=== PATIENT | male | born 1935 | race Caucasian/White ===

== ENCOUNTER 2017-10-26 01:34 | Inpatient (IN) | payer MEDICARE, OTHER ==
[~2017-10-26] VITALS: Ht 182.9 cm; Wt 68.0 kg
[2017-10-26] VITALS (14 sets, daily range): BP systolic 86–181; BP diastolic 51–102; PULSE 65–89; RESP 16–28; TEMP 97.6–99; O2SAT 92–99
--- NOTE | 2017-10-26 01:56 | RADRPT ---
EXAM DATE/TIME: 10/26/2017 01:44 [place] COMPARISON: No previous studies available for comparison. INDICATIONS : Short of breath. MEDICAL HISTORY : None. SURGICAL HISTORY : None. ENCOUNTER: Initial ACUITY: 1 day PAIN SCORE: 0/10 LOCATION: Bilateral chest FINDINGS: The heart size is normal. There is mild increased density at the medial right base. The left lung is grossly clear. No effusion is seen. CONCLUSION: Mild increased density at the right medial base which may represent a mild area of atelectasis or con solidation. Davie Kurtz MD on October 26, 2017 at 1:50 Board Certified Radiologist. This report was verified electronically.
[2017-10-26] MEDS: RESP: ALBUTEROL 2.5 MG/IPRATROPIUM 0.5 MG NEB (SCH) INH (02:09)
[2017-10-26] MEDS ORDERED: AZITHROMYCIN INJ 500 MG in SODIUM CHLOR 0.9% 250 ML INJ 250 ML IV ONE (02:15)
[2017-10-26] MEDS ORDERED: SODIUM CHLORIDE 0.9% FLUSH 10 ML FLUSH IVF PRN (02:15)
[2017-10-26] MEDS ORDERED: CEFEPIME INJ 2,000 MG in SODIUM CHLORIDE 0.9% INJ 100 ML IV ONE (02:15)
[2017-10-26] MEDS ORDERED: methylPREDNISolone SOD SUCC 125 MG/2 ML VIAL IV PUSH ONE (02:15)
--- NOTE | 2017-10-26 03:17 | PD ---
HPI Chief Complaint: Respiratory Distress Time Seen by Provider: 01:37 Travel History International Travel<30 days: No Contact w/Intl Traveler<30days: No Traveled to known affect area: No History of Present Illness HPI The patient is an 82 year old male who presents to the [facility] emergency department with a history of shortness of breath that became worse this evening. The patient was on supplemental oxygen at 2 L, however he began to desaturate into the 80s. The patient is currently under treatment with doxycycline for bilateral pneumonia according to ambulance services confirmed via chest x-ray. Unfortunately no history is able to be obtained from the patient as he is nonverbal. According to the record the patient is nonverbal at his baseline. The patient does track with IV movements around the room and is cooperative with his exam. The patient reportedly has been having fevers with a MAXIMUM TEMPERATURE of 102 at the assisted. Unfortunately no other history is able to be obtained from the patient due to his baseline mental status. The patient's electronic medical record will be reviewed as well as his assisted record for further history. The patient's blood pressure prior to arrival was in the 80s systolic. The patient was given normal saline 1 L IV fluid bolus prior to arrival. The patient's blood pressure has improved to systolic in the low 100s. FORMERLY [facility], [facility] Past Medical History Narrative Medical The patient's past medical history is significant for dementia. The patient is nonverbal. The patient has a history of hypertension, coronary artery disease, cardiac arrhythmia, left heel pressure ulcer, history of anxiety disorder, and a history of tremor. Anemia: Yes Anxiety: Yes Cardiovascular Problems: Yes (ISCHEMIC HEART DISEASE, ATRIOVENTRICULAR BLOCK) Dementia: Yes GERD: Yes Genitourinary: Yes (URINARY TRACT INFECTION) Hypertension: Yes Neurologic: Yes (TREMOR) Integumentary: Yes (LEFT HEEL PRESSURE ULCER) Thyroid Disease: Yes (HYPO) Past Surgical History Narrative Surgical The patient's past surgical history is unable to be obtained. Social History Alcohol Use: No Tobacco Use: No Substance Use: No Allergies-Medications (Allergen,Severity, Reaction): Coded Allergies: No Known Allergies (Unverified , 10/26/17) Reported Meds & Prescriptions Reported Meds & Active Scripts Active Reported Duoneb (Ipratropium-Albuterol Neb) 0.5-2.5 Mg/3 Ml Neb 1 Nebule INH Q8HR NEB Aripiprazole 5 Mg Tab 5 Mg PO DAILY Amlodipine (Amlodipine Besylate) 5 Mg Tab 5 Mg PO BID Atorvastatin (Atorvastatin Calcium) 10 Mg Tab 5 Mg PO HS Donepezil 10 Mg Tab 10 Mg PO HS Losartan (Losartan Potassium) 50 Mg Tab 50 Mg PO DAILY B-12 (Cyanocobalamin) 500 Mcg Subl 500 Mcg SL DAILY Oxybutynin ER 24 HR (Oxybutynin Chloride) 5 Mg Tab 5 Mg PO DAILY Docusate Sodium 100 Mg Cap 100 Mg PO DAILY Multi-Vitamin Daily (Multiple Vitamin) 1 Tab Tab 1 Tab PO DAILY Tums (Calcium Carbonate (Antacid)) 500 Mg Chew 500 Mg CHEW PRN Carvedilol 3.125 Mg Tab 3.125 Mg PO BID Ferrous Sulfate 325 Mg (65 Mg Iron) Tablet 325 Mg PO BIDPC Florastor (Saccharomyces Boulardii) 250 Mg Cap 250 Mg PO BID Orabase Dental (Benzocaine Dental) 20% Pste 1 Applic DENTAL QID Robafen Dm 100-10 mg/5Ml (Dextromethorphan-Guaifenesin) 100 Mg-10 Mg/5 Ml Syp Requip (Ropinirole) 1 Mg Tab 1 Mg PO TID Hydralazine HCl 25 Mg Tablet 25 Mg PO TID Levothyroxine (Levothyroxine Sodium) 175 Mcg Tab 175 Mcg PO DAILY Levemir Inj (Insulin Detemir) 1,000 unit/ 10 ML Vial 4 Units SQ HS Do not mix with any other Insulin. Levemir Inj (Insulin Detemir) 1,000 unit/ 10 ML Vial 25 Units SQ AC BREAKFAST Do not mix with any other Insulin. Metformin (Metformin HCl) 500 Mg Tab 500 Mg PO BIDPC Novolog Inj (Insulin Aspart) 1,000 Unit/10 Ml Vial 1-9 Units SQ ACHS Max dose at bedtime:( )units; sugars less than 70,(0)units; sugars 150-199,(1) unit; sugars 200-249,(3) units; sugars 250-299,(5) units; sugars 300-349,(7) units; sugars greater than 349,(9) units Aspirin 81 Mg Chew 81 Mg CHEW DAILY Buspirone (Buspirone HCl) 5 Mg Tab 5 Mg PO BID Vibramycin (Doxycycline Hyclate) 100 Mg Cap 100 Mg PO BID Milk of Magnesia Liq (Magnesium Hydroxide) 400 Mg/5 Ml Susp 30 Ml PO DAILY PRN Non-Aspirin (Acetaminophen) 325 Mg Tab 325 Mg PO Q4-6H PRN Review of Systems ROS Limitations: Poor Historian, Other: (nonverbal) General / Constitutional: Positive: Fever HENT: Positive: Congestion Cardiovascular: Positive: Dyspnea on exertion Respiratory: Positive: Cough, Shortness of Breath Physical Exam Narrative General: The patient is a well-developed well-nourished male in no acute distress. Head and Neck exam: Head is normocephalic atraumatic. Eyes: EOMI, pupils are equal round and reactive to light. Nose: Midline septum with pink mucous membranes Mouth: Dentition unremarkable. Moist mucus membranes. Posterior oropharynx is not erythematous. No tonsillar hypertrophy. Uvula midline. Airway patent. Neck: No palpable lymphadenopathy. No nuchal rigidity. No thyromegaly. Cardiovascular: Normal sinus rhythm in the 80s to 90s without murmurs, gallops, or rubs. No pulse deficit to the extremities on simultaneous auscultation and palpation of his radial artery. Lungs: Scattered rhonchi throughout bilateral lung verdin, decreased breath sounds in the right lower lung base. Anterior soft expiratory wheezes are noted. No crackles are audible. No accessory muscle use. Abdomen: Soft, without tenderness to palpation in all 4 quadrants of the abdomen. No guarding, rebound, or rigidity. Normal bowel sounds are audible. No tenderness on palpation of McBurney's point. Extremities: No clubbing or cyanosis. The patient has 1+ pitting edema bilateral lower extremities. 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 Back: No costovertebral angle tenderness to palpation. Neurologic Exam: The patient is tremulous on examination although according to the record he is tremulous at baseline. The patient is looking around the room and is cooperative with opening his mouth. He attempts to move bilateral upper extremities when asked and squeeze my hands, however he does have contractures noted of bilateral lower extremities limiting movement. According to the record he is mainly bed bound. Skin Exam: No rash noted. Intact skin that is warm and dry. Data Data Last Documented VS Vital Signs Date Time Temp Pulse Resp B/P (MAP) Pulse Ox O2 Delivery O2 Flow Rate FiO2 10/26/17 05:11 99.0 88 18 99/54 (69) 93 Nasal Cannula 2.00 Orders Orders Electrocardiogram (10/26/17 01:37) Complete Blood Count With Diff (10/26/17 01:37) Comprehensive Metabolic Panel (10/26/17 01:37) Creatine Kinase (Cpk) (10/26/17 01:37) Ckmb (Isoenzyme) Profile (10/26/17 01:37) Troponin I (10/26/17 01:37) B-Type Natriuretic Peptide (10/26/17 01:37) Prothrombin Time / Inr (Pt) (10/26/17 01:37) Act Partial Throm Time (Ptt) (10/26/17 01:37) Blood Culture (10/26/17 01:37) C-Reactive Protein (Crp) (10/26/17 01:37) Lipase (10/26/17 01:37) Urinalysis - C+S If Indicated (10/26/17 01:37) Magnesium (Mg) (10/26/17 01:37) Influenzae A/B Antigen (10/26/17 01:37) Chest, Single Ap (10/26/17 01:37) Iv Access Insert/Monitor (10/26/17 01:37) Ecg Monitoring (10/26/17 01:37) Oximetry (10/26/17 01:37) Lactic Acid Sepsis Protocol (10/26/17 01:37) Cefepime Inj (Maxipime Inj) (10/26/17 02:15) Azithromycin Inj (Zithromax Inj) (10/26/17 02:15) Sodium Chloride 0.9% Flush (Ns Flush) (10/26/17 02:15) Methylprednisolone So Succ Inj (Solumedr (10/26/17 02:15) Albuterol-Ipratropium Neb (Duoneb Neb) (10/26/17 02:15) CKMB (10/26/17 03:10) CKMB% (10/26/17 03:10) Admit Order (Ed Use Only) (10/26/17 05:14) Labs Laboratory Tests Test 10/26/17 03:10 10/26/17 03:47 White Blood Count 19.6 TH/MM3 Red Blood Count 2.89 MIL/MM3 Hemoglobin 8.8 GM/DL Hematocrit 26.1 % Mean Corpuscular Volume 90.2 FL Mean Corpuscular Hemoglobin 30.5 PG Mean Corpuscular Hemoglobin Concent 33.8 % Red Cell Distribution Width 15.3 % Platelet Count 343 TH/MM3 Mean Platelet Volume 8.8 FL Neutrophils (%) (Auto) 87.3 % Lymphocytes (%) (Auto) 7.5 % Monocytes (%) (Auto) 4.7 % Eosinophils (%) (Auto) 0.2 % Basophils (%) (Auto) 0.3 % Neutrophils # (Auto) 17.1 TH/MM3 Lymphocytes # (Auto) 1.5 TH/MM3 Monocytes # (Auto) 0.9 TH/MM3 Eosinophils # (Auto) 0.0 TH/MM3 Basophils # (Auto) 0.1 TH/MM3 CBC Comment DIFF FINAL Differential Comment Prothrombin Time 12.1 SEC Prothromb Time International Ratio 1.2 RATIO Activated Partial Thromboplast Time 31.4 SEC Blood Urea Nitrogen 62 MG/DL Creatinine 2.15 MG/DL Random Glucose 192 MG/DL Total Protein 7.1 GM/DL Albumin 2.0 GM/DL Calcium Level 8.0 MG/DL Magnesium Level 2.1 MG/DL Alkaline Phosphatase 69 U/L Aspartate Amino Transf (AST/SGOT) 78 U/L Alanine Aminotransferase (ALT/SGPT) 40 U/L Total Bilirubin 0.5 MG/DL Sodium Level 154 MEQ/L Potassium Level 4.2 MEQ/L Chloride Level 121 MEQ/L Carbon Dioxide Level 23.5 MEQ/L Anion Gap 10 MEQ/L Estimat Glomerular Filtration Rate 30 ML/MIN Lactic Acid Level 1.8 mmol/L Total Creatine Kinase 2020 U/L Creatine Kinase MB 15.3 NG/ML Creatine Kinase MB % 0.8 % Troponin I 0.10 NG/ML C-Reactive Protein 13.80 MG/DL B-Type Natriuretic Peptide 41 PG/ML Lipase 105 U/L Urine Color YELLOW Urine Turbidity CLEAR Urine pH 5.5 Urine Specific [place] 1.012 Urine Protein 30 mg/dL Urine Glucose (UA) NEG mg/dL Urine Ketones NEG mg/dL Urine Occult Blood NEG Urine Nitrite NEG Urine Bilirubin NEG Urine Urobilinogen LESS THAN 2.0 MG/DL Urine Leukocyte Esterase NEG Urine RBC 1 /hpf Urine WBC LESS THAN 1 /hpf Urine Squamous Epithelial Cells <1 /hpf Urine Amorphous Sediment RARE Urine Bacteria RARE /hpf Urine Mucus FEW /lpf Microscopic Urinalysis Comment CULT NOT INDICATED MDM Medical Decision Making Medical Screen Exam Complete: Yes Emergency Medical Condition: Yes Medical Record Reviewed: Yes Interpretation(s) Last Impressions Chest X-Ray 10/26/17 0137 Signed Impressions: Service Date/Time: Thursday, October 26, 2017 01:44 - CONCLUSION: Mild increased density at the right medial base which may represent a mild area of atelectasis or consolidation. Davie Kurtz MD Differential Diagnosis Healthcare acquired pneumonia, versus aspiration pneumonia, versus ingestive heart failure, versus acute coronary syndrome, versus ARDS Narrative Course During the course of the patients emergency department visit, the patients history, examination, and differential diagnosis were reviewed with the patient. The patient was placed on a cardiac exercise specialist with oximetry and frequent blood pressure monitoring. The patient had IV access obtained and blood work sent for analysis. The patient had an ECG done on arrival that shows a sinus rhythm heart rate of 91, right bundle branch block is noted, QRS duration is 129 ms, QTC 447 ms. A premature ventricular contraction is noted. No acute ST segment elevation is noted. The patient was initially provided a second liter of normal saline IV fluids, the patient was given an initial liter by ambulance services. The patient was started on cefepime 2 g IV, Zithromax 500 IV. The patients laboratory studies were reviewed and remarkable for white count of 19.6, hemoglobin 8.8, platelets 343 with 87.3 neutrophils, CMP as remarkable for a sodium of a sodium of 154, chloride 121, BUN 62, creatinine 2.15, glucose 192, AST 78, CPK 2020 with an MB percent of 0.8 consistent with rhabdomyolysis, troponin I 0.10 which could be demand related, versus elevation related to renal insufficiency, C-reactive protein 13.8 consistent with infection, lipase 105, PT 12.1, PTT 30.1. Urinalysis shows 30 protein, rare bacteria, vancomycin 12.4. Radiology studies were reviewed and remarkable for chest x-ray reveals mild increased density at the right medial base which may represent a mild area of atelectasis or consolidation. The patients results were discussed with the patient, including the plan of care. I explained that further testing and/ or monitoring is indicated based on the patients history, examination, and/ or laboratory findings. Therefore, I recommended admission for additional evaluation. The patient expressed understanding and was agreeable with this plan. The patient was admitted to the hospital in guarded condition and sent to a bed under the care of the [facility] service. Sepsis Criteria SIRS Criteria (2 or more): Heart rate over 90, WBC > 39163, < 4000 or > 10% bands Sepsis Criteria (SIRS+source): Infect source susp/known Criteria Outcome: Meets SIRS criteria, Meets sepsis criteria Physician Communication Physician Communication The patient's case including history, pertinent physical examination findings, and laboratory studies were discussed with Dr. Perez. It was agreed that the patient would be admitted to the [facility] service. Diagnosis Primary Impression: Pneumonia Qualified Codes: J18.1 - Lobar pneumonia, unspecified organism Additional Impressions: Failure of outpatient treatment Rhabdomyolysis Qualified Codes: M62.82 - Rhabdomyolysis Acute renal failure Qualified Codes: N17.9 - Acute kidney failure, unspecified Elevated troponin Admitting Information Admitting Physician Requests: Admit Fozia Gómez MD Oct 26, 2017 03:17
[2017-10-26 03:49] LABS: INTERNATIONAL NORMALIZED RATIO 1.2 RATIO; PROTHROMBIN TIME - PATIENT 12.1 SEC (9.8-11.6)
[2017-10-26 03:51] LABS: ALT (GPT) 40 U/L (12-78); AST (GOT) 78 U/L (15-37); BICARBONATE 23.5 MEQ/L (21.0-32.0); BLOOD UREA NITROGEN 62 MG/DL (7-18); CHLORIDE 121 MEQ/L (98-107); CREATININE 2.15 MG/DL (0.60-1.30); GLOMERULAR FILTRATION RATE 30 ML/MIN (>89); GLUCOSE,RANDOM 192 MG/DL (74-106); LIPASE 105 U/L (73-393); MAGNESIUM 2.1 MG/DL (1.5-2.5); SODIUM (NA) 154 MEQ/L (136-145)
[2017-10-26 04:01] LABS: AUTOMATED NEUTROPHIL # 17.1 TH/MM3 (1.8-7.7); BASOPHIL # 0.1 TH/MM3 (0-0.2); BASOPHIL % 0.3 % (0.0-2.0); EOSINOPHIL % 0.2 % (0.0-4.0); HEMATOCRIT 26.1 % (39.0-51.0); HEMOGLOBIN 8.8 GM/DL (13.0-17.0); LYMPH % 7.5 % (9.0-44.0); LYMPHOCYTE # 1.5 TH/MM3 (1.0-4.8); MEAN CELL VOLUME 90.2 FL (80.0-100.0); MEAN CORPUSCULAR HEMOGLOBIN 30.5 PG (27.0-34.0); MEAN CORPUSCULAR HGB CONC 33.8 % (32.0-36.0); MEAN PLATELET VOLUME 8.8 FL (7.0-11.0); MONO % 4.7 % (0.0-8.0); MONOCYTE # 0.9 TH/MM3 (0-0.9); NEUT % 87.3 % (16.0-70.0); PLATELET COUNT 343 TH/MM3 (150-450); RED BLOOD COUNT 2.89 MIL/MM3 (4.50-5.90); RED CELL DISTRIBUTION WIDTH 15.3 % (11.6-17.2); WHITE BLOOD COUNT 19.6 TH/MM3 (4.0-11.0)
[2017-10-26] MEDS ORDERED: NON-325T2 PO (04:03)
[2017-10-26] MEDS ORDERED: MILKSUS PO (04:03)
[2017-10-26 04:06] LABS: ALKALINE PHOSPHATASE 69 U/L (45-117); TOTAL BILIRUBIN ADULT 0.5 MG/DL (0.2-1.0); TOTAL PROTEIN 7.1 GM/DL (6.4-8.2)
[2017-10-26] MEDS ORDERED: LEVEMIR SQ ×2 (04:16)
[2017-10-26] MEDS ORDERED: VITA500L2 SL (04:16)
[2017-10-26] MEDS ORDERED: DOCU100C15 PO (04:16)
[2017-10-26] MEDS ORDERED: TUMS500C CHEW (04:16)
[2017-10-26] MEDS ORDERED: [UNRECOGNIZED DRUG - CODE] DENTAL (04:16)
[2017-10-26] MEDS ORDERED: NOVOLOGP2 SQ (04:16)
[2017-10-26] MEDS ORDERED: OXYB5TAB PO (04:16)
[2017-10-26] MEDS ORDERED: FERR325T18 PO (04:16)
[2017-10-26] MEDS ORDERED: HYDR-3799 PO (04:16)
[2017-10-26] MEDS ORDERED: LEVO175T2 PO (04:16)
[2017-10-26] MEDS ORDERED: ASPI-516 CHEW (04:16)
[2017-10-26] MEDS ORDERED: METF500T PO (04:16)
[2017-10-26] MEDS ORDERED: ROBA100S (04:16)
[2017-10-26] MEDS ORDERED: FLOR250C PO (04:16)
[2017-10-26] MEDS ORDERED: BUSP5TAB PO (04:16)
[2017-10-26] MEDS ORDERED: MULT-65 PO (04:16)
[2017-10-26] MEDS ORDERED: VIBR100C PO (04:16)
[2017-10-26] MEDS ORDERED: ROPI1TAB72 PO (04:16)
[2017-10-26] MEDS ORDERED: CARV3.12 PO (04:16)
[2017-10-26] MEDS ORDERED: ATOR10TA15 PO (04:17)
[2017-10-26] MEDS ORDERED: ARIP1TAB11 PO (04:17)
[2017-10-26] MEDS ORDERED: DONE10TA7 PO (04:17)
[2017-10-26] MEDS ORDERED: IPRASOL INH (04:17)
[2017-10-26] MEDS ORDERED: AMLO5TAB2 PO (04:17)
[2017-10-26] MEDS ORDERED: LOSA50TA PO (04:17)
[2017-10-26 04:18] LABS: AMORPHOUS SEDIMENT, URINE RARE; BACTERIA, URINE RARE /hpf; BILIRUBIN, URINE NEG (NEG); BLOOD, URINE NEG (NEG); GLUCOSE,URINE NEG (NEG); KETONE, URINE NEG (NEG); MUCUS URINE FEW /lpf (OCC); NITRITE,URINE NEG (NEG); PH, URINE 5.5 (5.0-8.5); SQUAMOUS EPITHELIAL CELL URINE <1 /hpf (0-5); URINE COLOR YELLOW (YELLW/STRAW); URINE LEUKOCYTE ESTERASE NEG (NEG)
[2017-10-26] MEDS ORDERED: RESP: ALBUTEROL 2.5 MG/IPRATROPIUM 0.5 MG NEB (SCH) NEB ONE (05:30)
[2017-10-26] MEDS ORDERED: SODIUM CHLOR 0.9% 1000 ML INJ 1,000 ML IV SCH (05:36)
[2017-10-26] MEDS ORDERED: MAGNESIUM HYDROXIDE SUSP 30 ML CUP PO PRN (05:45)
[2017-10-26] MEDS ORDERED: RESP: ALBUTEROL 2.5 MG/IPRATROPIUM 0.5 MG NEB (PRN) NEB (05:45)
[2017-10-26] MEDS ORDERED: ACETAMINOPHEN 325 MG TAB PO PRN (05:45)
[2017-10-26] MEDS ORDERED: LACTULOSE SYRUP 20 GM/30 ML CUP PO PRN (05:45)
[2017-10-26] MEDS ORDERED: ACETAMINOPHEN/HYDROcodone 325 MG/5 MG TAB PO PRN (05:45)
[2017-10-26] MEDS ORDERED: MORPHINE SULFATE 2 MG/ML INJ IV PUSH PRN (05:45)
[2017-10-26] MEDS ORDERED: Vancomycin Consult Pharmacy 1 EA OTHER SCH (05:45)
[2017-10-26] MEDS ORDERED: BISACODYL 10 MG SUPP RECTAL PRN (05:45)
[2017-10-26] MEDS ORDERED: SODIUM CHLORIDE 0.9% FLUSH 10 ML FLUSH IV FLUSH PRN (05:45)
[2017-10-26] MEDS ORDERED: ONDANSETRON HCL 4 MG/2 ML VIAL IVP PRN (05:45)
[2017-10-26] MEDS ORDERED: SENNOSIDES 8.6 MG TAB PO PRN (05:45)
[2017-10-26] MEDS ORDERED: VANCOMYCIN 1,000 MG/NS 250 ML IV ONE ×2 (06:00)
[2017-10-26] MEDS ORDERED: GLUCAGON 1 MG/ML VIAL OTHER PRN (08:15)
[2017-10-26] MEDS ORDERED: DEXTROSE 50% IN WATER 50 ML VIAL(D50) IV PUSH PRN (08:15)
[2017-10-26] MEDS: CYANOCOBALAMIN 1,000 MCG TAB PO SCH (09:00)
[2017-10-26] MEDS: MULTIVITAMIN TAB PO SCH (09:51)
[2017-10-26] MEDS: FERROUS SULFATE 325 MG (65 MG ELEMENTAL IRON) TAB PO SCH ×2 (09:51→18:00)
[2017-10-26] MEDS: DOCUSATE SODIUM 50 MG/SENNA 8.6 MG TAB PO SCH ×2 (09:51→20:08)
[2017-10-26] MEDS: busPIRone HCL 5 MG TAB PO SCH ×2 (09:51→20:08)
[2017-10-26] MEDS: LEVOTHYROXINE SODIUM 100 MCG TAB PO SCH (09:52)
[2017-10-26] MEDS: ARIPiprazole 5 MG TAB PO SCH (09:52)
[2017-10-26] MEDS: ASPIRIN 81 MG CHEW TAB CHEW SCH (09:52)
[2017-10-26] MEDS: LEVOTHYROXINE SODIUM 75 MCG TAB PO SCH (09:52)
[2017-10-26] MEDS: SODIUM CHLORIDE 0.9% FLUSH 10 ML FLUSH IV FLUSH SCH ×2 (09:53→20:08)
[2017-10-26] MEDS ORDERED: VANCOMYCIN IV ONE (10:00)
[2017-10-26] MEDS ORDERED: SODIUM CHLORIDE 0.9% IV ONE (10:00)
[2017-10-26] MEDS ORDERED: SODIUM BICARBONATE 8.4% INJ 75 MEQ in DEXTROSE 5% IN WATE 1000ML INJ 1,000 ML IV SCH ×2 (10:00)
[2017-10-26] MEDS: TOLTERODINE TARTRATE 2 MG CAP LA PO SCH (11:00)
[2017-10-26] MEDS: INSULIN ASPART SUPPLEMENTAL SCALE SQ SCH ×3 (12:00→21:15)
--- NOTE | 2017-10-26 12:00 | HHI.HP ---
HPI Service [facility] Hospitalists Primary Care Physician Nish Howard MD Admission Diagnosis Pneumonia failed outpatient, dehydration, rhabdo Diagnoses: Chief Complaint: Fever Dyspnea Travel History International Travel<30 Days: No Contact w/Intl Traveler <30 Da: No Traveled to Known Affected Are: No Sepsis Criteria SIRS Criteria (2 or more): Temp > 100.9 or < 96.8, WBC > 25274, < 4000 or > 10 % bands Sepsis Criteria (SIRS+source): Infect source susp/known Criteria Outcome: Meets sepsis criteria History of Present Illness Written by Jeanette Ballesteros, acting as scribe for Dr. Goodwin on 10/26/17 at 11: 44. This is a 82-year-old male with past medical history significant for dementia who is basically nonverbal, hypertension, coronary artery disease, anemia, diabetes, hypothyroidism, long-standing tremor and left heel pressure ulcer who presents to [facility] ED with complaints of progressive shortness of breath. As patient is basically nonverbal, all history is obtained from review of the medical record and discussion with the nursing staff. Reportedly, patient is on supplemental oxygen 2 L at the nursing facility where he resides. It is unclear how long he has been on supplemental oxygen. He is currently receiving Doxycycline for bilateral pneumonia which was confirmed via chest x- ray. Reportedly, patient is having fevers at the nursing facility with a maximum temperature of 102. In the ED, chest x-ray was obtained revealing mild increased density at the right medial base. Patient was found to have elevated white count of 19.6. Patient is found to be hypernatremic with a sodium level of 154. Troponin is elevated 0.10. CK elevated at 2020. Lactic acid is 1.8. Review of Systems Unable to complete 10 point review of systems due to patient being mostly nonverbal Past Family Social History Past Medical History Reported: Hypertension Coronary artery disease Cardiac arrhythmia Dementia Left heel pressure ulcer Anemia on iron supplementation DM Tremors Past Surgical History Unable to obtain patients previous surgical history Reported Medications Duoneb (Ipratropium-Albuterol Neb) 0.5-2.5 Mg/3 Ml Neb 1 Nebule INH Q8HR NEB Aripiprazole 5 Mg Tab 5 Mg PO DAILY Amlodipine (Amlodipine Besylate) 5 Mg Tab 5 Mg PO BID Atorvastatin (Atorvastatin Calcium) 10 Mg Tab 5 Mg PO HS Donepezil 10 Mg Tab 10 Mg PO HS Losartan (Losartan Potassium) 50 Mg Tab 50 Mg PO DAILY B-12 (Cyanocobalamin) 500 Mcg Subl 500 Mcg SL DAILY Oxybutynin ER 24 HR (Oxybutynin Chloride) 5 Mg Tab 5 Mg PO DAILY Docusate Sodium 100 Mg Cap 100 Mg PO DAILY Multi-Vitamin Daily (Multiple Vitamin) 1 Tab Tab 1 Tab PO DAILY Tums (Calcium Carbonate (Antacid)) 500 Mg Chew 500 Mg CHEW PRN Carvedilol 3.125 Mg Tab 3.125 Mg PO BID Ferrous Sulfate 325 Mg (65 Mg Iron) Tablet 325 Mg PO BIDPC Florastor (Saccharomyces Boulardii) 250 Mg Cap 250 Mg PO BID Orabase Dental (Benzocaine Dental) 20% Pste 1 Applic DENTAL QID Robafen Dm 100-10 mg/5Ml (Dextromethorphan-Guaifenesin) 100 Mg-10 Mg/5 Ml Syp Requip (Ropinirole) 1 Mg Tab 1 Mg PO TID Hydralazine HCl 25 Mg Tablet 25 Mg PO TID Levothyroxine (Levothyroxine Sodium) 175 Mcg Tab 175 Mcg PO DAILY Levemir Inj (Insulin Detemir) 1,000 unit/ 10 ML Vial 4 Units SQ HS Do not mix with any other Insulin. Levemir Inj (Insulin Detemir) 1,000 unit/ 10 ML Vial 25 Units SQ AC BREAKFAST Do not mix with any other Insulin. Metformin (Metformin HCl) 500 Mg Tab 500 Mg PO BIDPC Novolog Inj (Insulin Aspart) 1,000 Unit/10 Ml Vial 1-9 Units SQ ACHS Max dose at bedtime:( )units; sugars less than 70,(0)units; sugars 150-199,(1) unit; sugars 200-249,(3) units; sugars 250-299,(5) units; sugars 300-349,(7) units; sugars greater than 349,(9) units Aspirin 81 Mg Chew 81 Mg CHEW DAILY Buspirone (Buspirone HCl) 5 Mg Tab 5 Mg PO BID Vibramycin (Doxycycline Hyclate) 100 Mg Cap 100 Mg PO BID Milk of Magnesia Liq (Magnesium Hydroxide) 400 Mg/5 Ml Susp 30 Ml PO DAILY PRN Non-Aspirin (Acetaminophen) 325 Mg Tab 325 Mg PO Q4-6H PRN Allergies: Coded Allergies: No Known Allergies (Unverified , 10/26/17) Active Ordered Medications Current Medications Medications (Trade) Dose Ordered Sig/Eduardo Route Start Time Stop Time Status Last Admin Pharmacy Profile Note 0 ml @ 0 mls/hr UNSCH OTHER 10/26/17 05:45 (Duoneb Neb) 1 ampule Q4HR NEB PRN NEB 10/26/17 05:45 (NS Flush) 2 ml UNSCH PRN IV FLUSH 10/26/17 05:45 (NS Flush) 2 ml BID IV FLUSH 10/26/17 09:00 10/26/17 09:53 (Zofran Inj) 4 mg Q6H PRN IVP 10/26/17 05:45 (Tylenol) 650 mg Q6H PRN PO 10/26/17 05:45 (Northwood 5-325 Mg) 1 tab Q4H PRN PO 10/26/17 05:45 (Morphine Inj) 2 mg Q3H PRN IV PUSH 10/26/17 05:45 (Lucia-Colace) 1 tab BID PO 10/26/17 09:00 10/26/17 09:51 (Milk Of Magnesia Liq) 30 ml Q12H PRN PO 10/26/17 05:45 (Senokot) 17.2 mg Q12H PRN PO 10/26/17 05:45 (Dulcolax Supp) 10 mg DAILY PRN RECTAL 10/26/17 05:45 (Lactulose Liq) 30 ml DAILY PRN PO 10/26/17 05:45 Cefepime HCl 2000 mg/Sodium Chloride 100 ml @ 200 mls/hr Q24H IV 10/27/17 05:00 (D50w (Vial) Inj) 50 ml UNSCH PRN IV PUSH 10/26/17 08:15 (Glucagon Inj) 1 mg UNSCH PRN OTHER 10/26/17 08:15 (NovoLOG SUPPLEMENTAL SCALE) 1 ACHS SLIDING SCALE SQ 10/26/17 12:00 (Abilify) 5 mg DAILY PO 10/26/17 09:00 10/26/17 09:52 (Aspirin Chew) 81 mg DAILY CHEW 10/26/17 09:00 10/26/17 09:52 (Lipitor) 5 mg HS PO 10/26/17 21:00 (Buspar) 5 mg BID PO 10/26/17 09:00 10/26/17 09:51 (Aricept) 10 mg HS PO 10/26/17 21:00 (Ferrous Sulfate) 325 mg BIDPC PO 10/26/17 09:00 10/26/17 09:51 (Vitamin B12) 500 mcg DAILY PO 10/26/17 09:00 (Synthroid) 100 mcg DAILY PO 10/26/17 09:00 10/26/17 09:52 (Theragran) 1 tab DAILY PO 10/26/17 09:00 10/26/17 09:51 (Detrol La) 2 mg DAILY PO 10/26/17 09:30 (Lactinex) 1 tab BID PO 10/26/17 21:00 Sodium Bicarbonate 75 meq/Dextrose 1,075 ml @ 100 mls/hr [id number] IV 10/26/17 10:00 10/26/17 11:17 (Synthroid) 75 mcg DAILY PO 10/26/17 09:00 10/26/17 09:52 Family History Unable to obtain patient's family medical history Social History Unable to obtain patient's social history Physical Exam Vital Signs Vital Signs Date Time Temp Pulse Resp B/P (MAP) Pulse Ox O2 Delivery O2 Flow Rate FiO2 10/26/17 09:44 97.8 84 28 110/56 (74) 95 Nasal Cannula 3.00 10/26/17 06:53 85 16 86/52 (63) 97 Room Air 3.00 10/26/17 05:11 99.0 88 18 99/54 (69) 93 Nasal Cannula 2.00 10/26/17 03:15 89 20 115/72 (86) 92 Nasal Cannula 2.00 10/26/17 02:39 96 Nasal Cannula 3.00 10/26/17 02:28 88 16 94/51 (65) 99 Simple Mask 8.00 10/26/17 02:17 99 Simple Mask 8.00 10/26/17 02:00 88 16 94/51 (65) 98 Physical Exam GENERAL: This is a well-nourished, well-developed male patient, in no apparent distress. Mostly nonverbal. SKIN: Cool and dry. No rashes. HEAD: Atraumatic. Normocephalic. No temporal or scalp tenderness. EYES: Pupils equal round and reactive. Extraocular motions intact. No scleral icterus. No injection or drainage. ENT: Nose without bleeding or purulent drainage. Throat without erythema, tonsillar hypertrophy or exudate. Uvula midline. Airway patent. NECK: Trachea midline. No lymphadenopathy. Supple, nontender, no meningeal signs. CARDIOVASCULAR: Regular rate and rhythm without murmurs, gallops, or rubs. RESPIRATORY: Poor air movement with crackles bilaterally. GASTROINTESTINAL: Abdomen soft, non-tender, nondistended. No hepato-splenomegaly , or palpable masses. No guarding. MUSCULOSKELETAL: Bilateral lower extremity contractures. Due to severity of contractures, unable to fully assess left heel pressure ulcer but obvious drainage noted with seepage through patients sock. NEUROLOGICAL: Awake. Follows some simple commands. Mostly nonverbal but did yell out when attempting to evaluated left heel. Laboratory Laboratory Tests Test 10/26/17 03:10 10/26/17 03:47 White Blood Count 19.6 Red Blood Count 2.89 Hemoglobin 8.8 Hematocrit 26.1 Mean Corpuscular Volume 90.2 Mean Corpuscular Hemoglobin 30.5 Mean Corpuscular Hemoglobin Concent 33.8 Red Cell Distribution Width 15.3 Platelet Count 343 Mean Platelet Volume 8.8 Neutrophils (%) (Auto) 87.3 Lymphocytes (%) (Auto) 7.5 Monocytes (%) (Auto) 4.7 Eosinophils (%) (Auto) 0.2 Basophils (%) (Auto) 0.3 Neutrophils # (Auto) 17.1 Lymphocytes # (Auto) 1.5 Monocytes # (Auto) 0.9 Eosinophils # (Auto) 0.0 Basophils # (Auto) 0.1 CBC Comment DIFF FINAL Differential Comment Prothrombin Time 12.1 Prothromb Time International Ratio 1.2 Activated Partial Thromboplast Time 31.4 Blood Urea Nitrogen 62 Creatinine 2.15 Random Glucose 192 Total Protein 7.1 Albumin 2.0 Calcium Level 8.0 Magnesium Level 2.1 Alkaline Phosphatase 69 Aspartate Amino Transf (AST/SGOT) 78 Alanine Aminotransferase (ALT/SGPT) 40 Total Bilirubin 0.5 Sodium Level 154 Potassium Level 4.2 Chloride Level 121 Carbon Dioxide Level 23.5 Anion Gap 10 Estimat Glomerular Filtration Rate 30 Lactic Acid Level 1.8 Total Creatine Kinase 2020 Creatine Kinase MB 15.3 Creatine Kinase MB % 0.8 Troponin I 0.10 C-Reactive Protein 13.80 B-Type Natriuretic Peptide 41 Lipase 105 Urine Color YELLOW Urine Turbidity CLEAR Urine pH 5.5 Urine Specific Henderson 1.012 Urine Protein 30 Urine Glucose (UA) NEG Urine Ketones NEG Urine Occult Blood NEG Urine Nitrite NEG Urine Bilirubin NEG Urine Urobilinogen LESS THAN 2.0 Urine Leukocyte Esterase NEG Urine RBC 1 Urine WBC LESS THAN 1 Urine Squamous Epithelial Cells <1 Urine Amorphous Sediment RARE Urine Bacteria RARE Urine Mucus FEW Microscopic Urinalysis Comment CULT NOT INDICATED Date/Time Source Procedure Growth Status 10/26/17 03:10 Blood Peripheral Aerobic Blood Culture Pending Received 10/26/17 03:10 Blood Peripheral Anaerobic Blood Culture Pending Received 10/26/17 03:14 Nasal Aspirate Influenza Types A,B Antigen (YEN) - Final NEGATIVE FOR FLU A AND B ANTIGEN.... Complete Result Diagram: 10/26/17 0310 10/26/17 0310 Imaging Last Impressions Chest X-Ray 10/26/17 0137 Signed Impressions: Service Date/Time: Thursday, October 26, 2017 01:44 - CONCLUSION: Mild increased density at the right medial base which may represent a mild area of atelectasis or consolidation. Davie Kurtz MD Caprini VTE Risk Assessment Caprini VTE Risk Assessment: Mod/High Risk (score >= 2) Caprini Risk Assessment Model Point Value = 1 Point Value = 2 Point Value = 3 Point Value = 5 Age 41-60 Minor surgery BMI > 25 kg/m2 Swollen legs Varicose veins or History of unexplained or recurrent spontaneous Oral contraceptives or hormone replacement Sepsis (< 1 month) Serious lung disease, including pneumonia (< 1 month) Abnormal pulmonary function Acute myocardial infarction Congestive heart failure (< 1 month) History of inflammatory bowel disease Medical patient at bed rest Age 61-74 Arthroscopic surgery Major open surgery (> 45 min) Laparoscopic surgery (> 45 min) Malignancy Confined to bed (> 72 hours) Immobilizing plaster cast Central venous access Age >= 75 History of VTE Family history of VTE Factor V Leiden Prothrombin [id number] Lupus anticoagulant Anticardiolipin antibodies Elevated serum homocysteine Heparin-induced thrombocytopenia Other congenital or acquired thrombophilia Stroke (< 1 month) Elective arthroplasty Hip, pelvis, or leg fracture Acute spinal cord injury (< 1 month) Prophylaxis Regimen Total Risk Factor Score Risk Level Prophylaxis Regimen 0-1 Low Early ambulation 2 Moderate Order ONE of the following: *Sequential Compression Device (SCD) *Heparin 5000 units SQ BID 3-4 Higher Order ONE of the following medications: *Heparin 5000 units SQ TID *Enoxaparin/Lovenox 40 mg SQ daily (WT < 150 kg, CrCl > 30 mL/min) *Enoxaparin/Lovenox 30 mg SQ daily (WT < 150 kg, CrCl > 10-29 mL/min) *Enoxaparin/Lovenox 30 mg SQ BID (WT < 150 kg, CrCl > 30 mL/min) AND/OR *Sequential Compression Device (SCD) 5 or more Highest Order ONE of the following medications: *Heparin 5000 units SQ TID (Preferred with Epidurals) *Enoxaparin/Lovenox 40 mg SQ daily (WT < 150 kg, CrCl > 30 mL/min) *Enoxaparin/Lovenox 30 mg SQ daily (WT < 150 kg, CrCl > 10-29 mL/min) *Enoxaparin/Lovenox 30 mg SQ BID (WT < 150 kg, CrCl > 30 mL/min) AND *Sequential Compression Device (SCD) Assessment and Plan Assessment and Plan 82-year-old male with past medical history significant for dementia who is basically nonverbal, hypertension, coronary artery disease, anemia, diabetes, hypothyroidism, long-standing tremor and left heel pressure ulcer who presents to [facility] ED with complaints of progressive shortness of breath. Patient meets sepsis criteria with fever 102, leukocytosis with white count of 19.6 and source of multi lobar pneumonia, failed outpatient treatment Acute hypoxic respiratory failure - CXR reveals mild increased density of the right medial base, images reviewed by me - Concern for silent aspiration. We'll obtain swallow evaluation by speech therapy - IV Zosyn - Supportive care - DuoNebs - Continue to monitor respiratory status and maintain supplemental oxygen to keep O2 sats above 92% - monitor white count - follow up on blood culture results - consult palliative care Hypernatremia Rhabdomyolysis - CK 2019. Continue to monitor CK trend. - IVF with sodium bicarb - monitor sodium level Elevated troponin - initial trop 0.10 - continue to monitor cardiac enzymes - continuous cardiac monitoring AUSTYN on CKD - Suspect due to dehydration, poor oral intake - Creatinine 2.15, GFR 30, creatinine 11/26/16 1.75 - Avoid nephrotoxic agents - Continue to monitor kidney function Anemia, chronic, on iron supplementation at home - no active bleeding - monitor CBC Hypertension - Patient is currently hypotensive - Hold patient's home dose of hydralazine, losartan, amlodipine and carvedilol - monitor BP and adjust treatment accordingly DM - accucheck - ISS - Patient uses Levemir 25 units subcutaneous before meals breakfast at home. Will monitor BS and initiate Levemir as indicated. Dementia BLE contractures - Continue patient on home dose of Donezepil 10 mg daily - PT/OT eval/tx Left heel pressure ulcer - consult wound care - Float heels off the bed/multipolus boots Hypothyroidism - continue patient on home dose of levothyroxine 175 g daily DVT prophylaxis - Heparin sq Discussed Condition With patient, nursing staff Physician Certification 2 Midnight Certification Type: Admission for Inpatient Services Order for Inpatient Services The services are ordered in accordance with Medicare regulations or non- Medicare payer requirements, as applicable. In the case of services not specified as inpatient-only, they are appropriately provided as inpatient services in accordance with the 2-midnight benchmark. Estimated LOS (days): 3 3 days is the estimated time the patient will need to remain in the hospital, assuming treatment plan goals are met and no additional complications. Post-Hospital Plan: Not yet determined Notes: This note was transcribed by beka Ballesteros. I, Dr. Wilbetr Goodwin personally performed the history, physical exam, and medical decision making; and confirmed the accuracy of the information in the transcribed note. Authenticated by Dr. Wilbert Goodwin on 10/26/17 at 22:52. Jeanette Ballesteros Oct 26, 2017 12:00 Wilbert Goodwin MD Oct 26, 2017 22:52
[2017-10-26 12:48] LABS: TROPONIN I 0.06 NG/ML (0.02-0.05)
[2017-10-26 15:08] LABS: BICARBONATE 21.9 MEQ/L (21.0-32.0); CALCIUM 7.7 MG/DL (8.5-10.1); CREATININE 2.37 MG/DL (0.60-1.30)
--- NOTE | 2017-10-26 15:38 | EKG ---
Date Performed: 10/26/2017 Time Performed: 01:38:37 PTAGE: 82 years EKG: Sinus rhythm RIGHT BUNDLE BRANCH BLOCK ABNORMAL ECG NO PREVIOUS TRACING DOCTOR: Nish Gaona Interpretating Date/Time 10/26/2017 15:36:40
[2017-10-26] MEDS: SODIUM CHLOR 0.45% 1000 ML INJ 1,000 ML IV SCH (17:49)
[2017-10-26] MEDS: PIPERACIL-TAZO 3.375 GM PREMIX 50 ML IV SCH ×2 (17:51→23:10)
[2017-10-26] MEDS ORDERED: CEFEPIME INJ 1,000 MG in SODIUM CHLORIDE 0.9% INJ 100 ML IV SCH (18:00)
[2017-10-26] MEDS: LACTOBACILLUS ACIDOPHILUS TAB PO SCH (20:08)
[2017-10-26] MEDS: ATORVASTATIN 10 MG TAB PO SCH (20:08)
[2017-10-26] MEDS: DONEPEZIL HCL 5 MG TAB PO SCH (20:08)
[2017-10-26] MEDS: HEPARIN SODIUM - SQ 10,000 UNITS/ML VIAL SQ SCH (21:15)
[2017-10-27 01:45] VITALS: BP 95/46; PULSE 74; RESP 24; TEMP 97; O2SAT 94
[2017-10-27 02:07] LABS: BASOPHIL % 0.1 % (0.0-2.0); EOSINOPHIL % 0.1 % (0.0-4.0); HEMATOCRIT 23.7 % (39.0-51.0); HEMOGLOBIN 7.9 GM/DL (13.0-17.0); LYMPH % 6.3 % (9.0-44.0); LYMPHOCYTE # 0.9 TH/MM3 (1.0-4.8); MEAN CELL VOLUME 90.6 FL (80.0-100.0); MEAN CORPUSCULAR HEMOGLOBIN 30.1 PG (27.0-34.0); MEAN CORPUSCULAR HGB CONC 33.2 % (32.0-36.0); MONO % 4.5 % (0.0-8.0); MONOCYTE # 0.7 TH/MM3 (0-0.9); PLATELET COUNT 335 TH/MM3 (150-450); RED BLOOD COUNT 2.61 MIL/MM3 (4.50-5.90); WHITE BLOOD COUNT 14.6 TH/MM3 (4.0-11.0)
[2017-10-27 02:10] LABS: ALBUMIN 1.7 GM/DL (3.4-5.0); BICARBONATE 24.9 MEQ/L (21.0-32.0); CALCIUM 7.4 MG/DL (8.5-10.1)
[2017-10-27 02:24] LABS: CALCIUM-PROTEIN CORRECTED 7.7 MG/DL (8.5-10.1); RANDOM VANCOMYCIN 12.4 COMMENT; TOTAL BILIRUBIN ADULT 0.4 MG/DL (0.2-1.0); TOTAL PROTEIN 6.6 GM/DL (6.4-8.2); TROPONIN I 0.19 NG/ML (0.02-0.05)
[2017-10-27] MEDS: SODIUM CHLOR 0.45% 1000 ML INJ 1,000 ML IV SCH ×4 (03:18→16:45)
[2017-10-27] MEDS: PIPERACIL-TAZO 3.375 GM PREMIX 50 ML IV SCH ×4 (04:52→23:50)
[2017-10-27] MEDS ORDERED: CEFEPIME 2000 MG/NS 100 ML IV SCH ×2 (05:00)
[2017-10-27 07:53] VITALS: BP 108/66; PULSE 72; RESP 18; TEMP 97.3; O2SAT 93; O2SAT 95
[2017-10-27] MEDS: HEPARIN SODIUM - SQ 10,000 UNITS/ML VIAL SQ SCH ×2 (09:25→21:28)
[2017-10-27] MEDS: FERROUS SULFATE 325 MG (65 MG ELEMENTAL IRON) TAB PO SCH ×2 (09:55→18:00)
[2017-10-27] MEDS: DOCUSATE SODIUM 50 MG/SENNA 8.6 MG TAB PO SCH ×2 (09:55→21:00)
[2017-10-27] MEDS: ARIPiprazole 5 MG TAB PO SCH (09:55)
[2017-10-27] MEDS: LEVOTHYROXINE SODIUM 100 MCG TAB PO SCH (09:55)
[2017-10-27] MEDS: TOLTERODINE TARTRATE 2 MG CAP LA PO SCH (09:55)
[2017-10-27] MEDS: CYANOCOBALAMIN 1,000 MCG TAB PO SCH (09:55)
[2017-10-27] MEDS: SODIUM CHLORIDE 0.9% FLUSH 10 ML FLUSH IV FLUSH SCH ×2 (09:55→21:00)
[2017-10-27] MEDS: MULTIVITAMIN TAB PO SCH (09:55)
[2017-10-27] MEDS: busPIRone HCL 5 MG TAB PO SCH ×2 (09:55→21:00)
[2017-10-27] MEDS: LACTOBACILLUS ACIDOPHILUS TAB PO SCH ×2 (09:55→21:00)
[2017-10-27] MEDS: ASPIRIN 81 MG CHEW TAB CHEW SCH (09:55)
[2017-10-27] MEDS: LEVOTHYROXINE SODIUM 75 MCG TAB PO SCH (09:55)
[2017-10-27] MEDS: INSULIN ASPART SUPPLEMENTAL SCALE SQ SCH ×4 (09:56→21:00)
[2017-10-27] MEDS ORDERED: VANCOMYCIN INJ 1,250 MG in SODIUM CHLOR 0.9% 250 ML INJ 250 ML IV ONE (11:00)
[2017-10-27 11:56] VITALS: BP 120/56; PULSE 78; RESP 18; TEMP 97.7; O2SAT 96
--- NOTE | 2017-10-27 12:10 | HHI.PR ---
Subjective Remarks Patien tin bed appears innad. However he is not answering any questions. With dememtia and nonverbal. Patient failed swallow evaluation. Discussed with palliative care Dr will follow for goals of care. Objective Vitals Vital Signs Date Time Temp Pulse Resp B/P (MAP) Pulse Ox O2 Delivery O2 Flow Rate FiO2 10/27/17 07:53 97.3 72 18 108/66 (80) 95 10/27/17 01:45 97.0 74 24 95/46 (62) 94 10/26/17 20:48 95 10/26/17 20:21 98.0 81 18 116/56 (76) 95 10/26/17 17:10 80 10/26/17 16:51 116/68 (84) 10/26/17 15:50 97.6 65 21 181/102 (128) I/O 10/26/17 10/26/17 10/26/17 10/27/17 10/27/17 10/27/17 07:00 15:00 23:00 07:00 15:00 23:00 Intake Total 350 ml 602.5 ml 50 ml 950 ml Balance 350 ml 602.5 ml 50 ml 950 ml Intake IV Total 350 ml 602.5 ml 50 ml 950 ml # Bowel Movements 1 Result Diagram: 10/27/1713210/27/17132 Imaging Last Impressions Chest X-Ray 10/26/17136 Signed Impressions: Service Date/Time: Thursday, October 26, 2017 01:44 - CONCLUSION: Mild increased density at the right medial base which may represent a mild area of atelectasis or consolidation. Davie Kurtz MD Objective Remarks GENERAL: This is a well-nourished, well-developed male patient, in no apparent distress. Mostly nonverbal. CARDIOVASCULAR: Regular rate and rhythm without murmurs, gallops, or rubs. RESPIRATORY: Poor air movement with crackles bilaterally. GASTROINTESTINAL: Abdomen soft, non-tender, nondistended. No hepato-splenomegaly , or palpable masses. No guarding. MUSCULOSKELETAL: Bilateral lower extremity contractures. Due to severity of contractures, unable to fully assess left heel pressure ulcer but obvious drainage noted with seepage through patients sock. NEUROLOGICAL: Awake. Follows some simple commands. Mostly nonverbal but did yell out when attempting to evaluated left heel. A/P Assessment and Plan 82-year-old male with past medical history significant for dementia who is basically nonverbal, hypertension, coronary artery disease, anemia, diabetes, hypothyroidism, long-standing tremor and left heel pressure ulcer who presents to [facility] ED with complaints of progressive shortness of breath. Patient is with severe dementia mostly bedbound, failed swallow evaluation, palliative care following. Patient with high risk of aspiration recurrent PNAs, pressure ulcers. Patient meets sepsis criteria with fever 102, leukocytosis with white count of 19.6 and source of multi lobar pneumonia, failed outpatient treatment. Acute hypoxic respiratory failure, resolving. - CXR reveals mild increased density of the right medial base, images reviewed by me - Concern for silent aspiration. We'll obtain swallow evaluation by speech therapy - IV Zosyn - Supportive care - DuoNebs - Continue to monitor respiratory status and maintain supplemental oxygen to keep O2 sats above 92% - monitor white count - follow up on blood culture results - consult palliative care Hypernatremia Rhabdomyolysis - CK 2019. Continue to monitor CK trend. - IVF with sodium bicarb - monitor sodium level Elevated troponin - initial trop 0.10 - continue to monitor cardiac enzymes - continuous cardiac monitoring AUSTYN on CKD - Suspect due to dehydration, poor oral intake - Creatinine 2.15, GFR 30, creatinine 11/26/16 1.75 - Avoid nephrotoxic agents - Continue to monitor kidney function Anemia, chronic, on iron supplementation at home - no active bleeding - monitor CBC Hypertension - Patient is currently hypotensive - Hold patient's home dose of hydralazine, losartan, amlodipine and carvedilol - monitor BP and adjust treatment accordingly DM - accucheck - ISS - Patient uses Levemir 25 units subcutaneous before meals breakfast at home. Will monitor BS and initiate Levemir as indicated. Dementia BLE contractures - Continue patient on home dose of Donezepil 10 mg daily - PT/OT eval/tx Left heel pressure ulcer - consult wound care - Float heels off the bed/multipolus boots Hypothyroidism - continue patient on home dose of levothyroxine 175 g daily DVT prophylaxis - Heparin sq Discussed Condition With patient, nurse, Dr Herrera palliative care Failed swallow evaluation Palliative care following for goals of care . Nubia Monk MD Oct 27, 2017 12:10
--- NOTE | 2017-10-27 12:30 | PD.CONS ---
Consult Service Palliative Care Consult Requested By Ricci . Primary Care Physician Nish Howard MD . Reason for Consultation a. To assist with evaluation and management of symptoms including: Dysphagia, agitation b. To assist medical decision maker(s) with: better understanding of current medical conditions; weighing benefits/burdens of medical treatment options; making medical treatment decisions. . HPI History of Present Illness This 82-year-old male from a skilled nursing, with a past history of dementia, anemia, UTI, and left heel decubitus, was sent back to the hospital because of apparent shortness of breath. The patient had been placed on doxycycline for pneumonia (reportedly confirmed by a chest x-ray at the skilled nursing), but it appeared he was worsening. 911 was called and paramedics reportedly found his blood pressure in the 80s and provided saline en route. The patient has been nonverbal since arrival and provides no history. In the emergency department, findings included: * Alert but nonverbal * Temp 99.0, pulse 88, respirations 18, blood pressure 99/54, oxygen saturation 93% on 2 L * White count 19.6, hemoglobin 8.8 * Sodium 154, creatinine 2.15, albumin 2.0 (creatinine was 1.75 a year ago) * AST 78, ALT 40 * CPK 2020 * Troponin 0.10 * Chest x-ray with right base consolidation Cultures were obtained and additional antibiotics were started. Speech therapy did an evaluation and noted that the patient seemed to be aspirating and they have recommended NPO status for now. Palliative Care was consulted to assist with symptom management, and to enter into discussions with the patient's family and decision makers regarding the current illnesses, the prognosis, and the benefits and burdens of the various treatment choices. . Function/Cognitive Trajectory The patient's nurse at his skilled nursing tells me by telephone that the patient can be verbal at times but is never verbal when strangers are around. She says he can make his needs known "some of the time," and that he can straighten out his legs "some of the time if he wants to" (unlike his constant flexed hips and knees here). He is essentially bedbound at the skilled nursing. . Review of Systems ROS Limitations: Clinical Condition (ROS/history per records, from patient's nurse at his skilled nursing, and from staff), Altered Mental Status (history of dementia) Endocrine: DENIES: Polyuria Eyes: DENIES: Eye inflammation Ears, nose, mouth, throat: DENIES: Epistaxis Respiratory: COMPLAINS OF: Cough (loose sounding), Shortness of breath (at the time of arrival) Cardiovascular: DENIES: Lower Extremity Edema Gastrointestinal: COMPLAINS OF: Bloody stools, Diarrhea, Vomiting, Vomiting blood Genitourinary: COMPLAINS OF: Hematuria Musculoskeletal: COMPLAINS OF: Decreased range of motion (seems to have lower extremity contractures) Integumentary: DENIES: Abnormal pigmentation Hematologic/Lymphatics: DENIES: Lymphadenopathy Immunologic/Allergic: DENIES: Urticaria Neurologic: DENIES: Seizures Psychiatric: COMPLAINS OF: Agitation (hold out his IV) Past Family Social History Coded Allergies: No Known Allergies (Unverified , 10/26/17) Past Medical History * Dementia * Anemia * History of UTI * Hypertension * Coronary artery disease * Cardiac arrhythmia * Left heel decubitus * Hyperlipidemia * Anxiety * Chronic tremor * Hypothyroid . Past Surgical History Unable to obtain patients previous surgical history - no information available from the skilled nursing and unable to reach any family . Reported Medications Reported Meds & Active Scripts Active Reported Duoneb (Ipratropium-Albuterol Neb) 0.5-2.5 Mg/3 Ml Neb 1 Nebule INH Q8HR NEB Aripiprazole 5 Mg Tab 5 Mg PO DAILY Amlodipine (Amlodipine Besylate) 5 Mg Tab 5 Mg PO BID Atorvastatin (Atorvastatin Calcium) 10 Mg Tab 5 Mg PO HS Donepezil 10 Mg Tab 10 Mg PO HS Losartan (Losartan Potassium) 50 Mg Tab 50 Mg PO DAILY B-12 (Cyanocobalamin) 500 Mcg Subl 500 Mcg SL DAILY Oxybutynin ER 24 HR (Oxybutynin Chloride) 5 Mg Tab 5 Mg PO DAILY Docusate Sodium 100 Mg Cap 100 Mg PO DAILY Multi-Vitamin Daily (Multiple Vitamin) 1 Tab Tab 1 Tab PO DAILY Tums (Calcium Carbonate (Antacid)) 500 Mg Chew 500 Mg CHEW PRN Carvedilol 3.125 Mg Tab 3.125 Mg PO BID Ferrous Sulfate 325 Mg (65 Mg Iron) Tablet 325 Mg PO BIDPC Florastor (Saccharomyces Boulardii) 250 Mg Cap 250 Mg PO BID Orabase Dental (Benzocaine Dental) 20% Pste 1 Applic DENTAL QID Robafen Dm 100-10 mg/5Ml (Dextromethorphan-Guaifenesin) 100 Mg-10 Mg/5 Ml Syp Requip (Ropinirole) 1 Mg Tab 1 Mg PO TID Hydralazine HCl 25 Mg Tablet 25 Mg PO TID Levothyroxine (Levothyroxine Sodium) 175 Mcg Tab 175 Mcg PO DAILY Levemir Inj (Insulin Detemir) 1,000 unit/ 10 ML Vial 4 Units SQ HS Do not mix with any other Insulin. Levemir Inj (Insulin Detemir) 1,000 unit/ 10 ML Vial 25 Units SQ AC BREAKFAST Do not mix with any other Insulin. Metformin (Metformin HCl) 500 Mg Tab 500 Mg PO BIDPC Novolog Inj (Insulin Aspart) 1,000 Unit/10 Ml Vial 1-9 Units SQ ACHS Max dose at bedtime:( )units; sugars less than 70,(0)units; sugars 150-199,(1) unit; sugars 200-249,(3) units; sugars 250-299,(5) units; sugars 300-349,(7) units; sugars greater than 349,(9) units Aspirin 81 Mg Chew 81 Mg CHEW DAILY Buspirone (Buspirone HCl) 5 Mg Tab 5 Mg PO BID Vibramycin (Doxycycline Hyclate) 100 Mg Cap 100 Mg PO BID Milk of Magnesia Liq (Magnesium Hydroxide) 400 Mg/5 Ml Susp 30 Ml PO DAILY PRN Non-Aspirin (Acetaminophen) 325 Mg Tab 325 Mg PO Q4-6H PRN . Current Medications Medications (Trade) Dose Ordered Sig/Eduardo Route Start Time Stop Time Status Last Admin Pharmacy Profile Note 0 ml @ 0 mls/hr UNSCH OTHER 10/26/17 05:45 (Duoneb Neb) 1 ampule Q4HR NEB PRN NEB 10/26/17 05:45 (NS Flush) 2 ml UNSCH PRN IV FLUSH 10/26/17 05:45 (NS Flush) 2 ml BID IV FLUSH 10/26/17 09:00 10/26/17 09:53 (Zofran Inj) 4 mg Q6H PRN IVP 10/26/17 05:45 (Tylenol) 650 mg Q6H PRN PO 10/26/17 05:45 (Grelton 5-325 Mg) 1 tab Q4H PRN PO 10/26/17 05:45 (Morphine Inj) 2 mg Q3H PRN IV PUSH 10/26/17 05:45 (Lucia-Colace) 1 tab BID PO 10/26/17 09:00 10/26/17 09:51 (Milk Of Magnesia Liq) 30 ml Q12H PRN PO 10/26/17 05:45 (Senokot) 17.2 mg Q12H PRN PO 10/26/17 05:45 (Dulcolax Supp) 10 mg DAILY PRN RECTAL 10/26/17 05:45 (Lactulose Liq) 30 ml DAILY PRN PO 10/26/17 05:45 (D50w (Vial) Inj) 50 ml UNSCH PRN IV PUSH 10/26/17 08:15 (Glucagon Inj) 1 mg UNSCH PRN OTHER 10/26/17 08:15 (NovoLOG SUPPLEMENTAL SCALE) 1 ACHS SLIDING SCALE SQ 10/26/17 12:00 10/27/17 09:56 (Abilify) 5 mg DAILY PO 10/26/17 09:00 10/26/17 09:52 (Aspirin Chew) 81 mg DAILY CHEW 10/26/17 09:00 10/26/17 09:52 (Lipitor) 5 mg HS PO 10/26/17 21:00 (Buspar) 5 mg BID PO 10/26/17 09:00 10/26/17 09:51 (Aricept) 10 mg HS PO 10/26/17 21:00 (Ferrous Sulfate) 325 mg BIDPC PO 10/26/17 09:00 10/26/17 09:51 (Vitamin B12) 500 mcg DAILY PO 10/26/17 09:00 (Synthroid) 100 mcg DAILY PO 10/26/17 09:00 10/26/17 09:52 (Theragran) 1 tab DAILY PO 10/26/17 09:00 10/26/17 09:51 (Detrol La) 2 mg DAILY PO 10/26/17 09:30 (Lactinex) 1 tab BID PO 10/26/17 21:00 (Synthroid) 75 mcg DAILY PO 10/26/17 09:00 10/26/17 09:52 (Heparin Inj) 5,000 units Q12HR SQ 10/26/17 21:00 10/27/17 09:25 Piperacillin Sod/ Tazobactam Sod 50 ml @ 100 mls/hr Q6H IV 10/26/17 17:00 10/27/17 11:42 Sodium Chloride 1,000 ml @ 125 mls/hr Q8H IV 10/26/17 16:45 10/27/17 11:41 (Requip) 1 mg Q8HR PO 10/26/17 22:00 Family History Unable to obtain patient's family medical history; unable to reach any family . Substance Use Tobacco: None reported Alcohol: None reported Prescription med abuse: None reported Illicits: None reported . Psychosocial History The patient is a long-term resident at [facility] The records list a sister (Snehal Edwards), but I have been unable to reach her, and the patient's skilled nursing nurse reports they have been unable to reach her recently. . Living Will: Never completed Health Care Surrogate: Never completed Durable Power of Floor Nurse: Never completed Ethical and Legal Issues There are no ethical issues that would impact his care or decision-making at this time. The patient lacks capacity for decision-making; it appears unlikely that he will regain that capacity. At the skilled nursing, the patient's sister, Snehal Edwards, had initially signed him in there as his decision maker, but the skilled nursing reports that Snehal is now a hospice patient and that they also have been unable to reach her or the 2 alternate names and phone numbers in their records (Pro Edwards and Shirin Beauchamp); I have tried several times to call each of the 3 of these with no success. . Physical Exam Vital Signs Date Time Temp Pulse Resp B/P (MAP) Pulse Ox O2 Delivery O2 Flow Rate FiO2 10/27/17 11:56 97.7 78 18 120/56 (77) 96 10/27/17 07:53 97.3 72 18 108/66 (80) 95 10/27/17 01:45 97.0 74 24 95/46 (62) 94 10/26/17 20:48 95 10/26/17 20:21 98.0 81 18 116/56 (76) 95 10/26/17 17:10 80 10/26/17 16:51 116/68 (84) 10/26/17 15:50 97.6 65 21 181/102 (128) Exam CONSTITUTIONAL/GENERAL: This is an adequately nourished patient, in no apparent distress. The patient is alert but he will not turn and look at me and will not follow commands; he is continuously nonverbal here. TUBES/LINES/DRAINS: Peripheral IV, wrist restraints, protective boots on feet/ heels SKIN: No jaundice, rashes, or lesions. Ecchymoses on upper extremities. No wounds seen anteriorly. Skin temperature appropriate. Not diaphoretic. HEAD: Atraumatic. Normocephalic. EYES: Pupils equal and round and reactive. Extraocular motions intact. No scleral icterus. No injection or drainage. Fundi not examined. ENT: Unable to determine if hearing is normal. Nose without bleeding or purulent drainage. NECK: Trachea midline. Supple, nontender. No palpable thyroid enlargement or nodularity. CARDIOVASCULAR: Regular rate and rhythm without murmurs, gallops, or rubs. No JVD. Peripheral pulses symmetric. RESPIRATORY/CHEST: Symmetric, unlabored respirations. Some rhonchi and rattling bilateral. GASTROINTESTINAL: Abdomen soft, non-tender, nondistended. No hepato-splenomegaly , or palpable masses. No guarding. Bowel sounds present. GENITOURINARY: Without palpable bladder distension. MUSCULOSKELETAL: Extremities without clubbing, cyanosis, or edema. He keeps his hips and knees completely flexed, and will not let me straighten his legs. No mottling or clubbing. LYMPHATICS: No palpable cervical or supraclavicular adenopathy. NEUROLOGICAL: Awake and alert. Moves all 4 extremities intermittently, does not follow commands, remains nonverbal. PSYCHIATRIC: Seems agitated at times, pulled out his IV .. Diagnostic Tests Laboratory Laboratory Tests Test 10/26/17 03:10 10/26/17 03:47 10/26/17 11:35 10/26/17 13:49 White Blood Count 19.6 TH/MM3 (4.0-11.0) Red Blood Count 2.89 MIL/MM3 (4.50-5.90) Hemoglobin 8.8 GM/DL (13.0-17.0) Hematocrit 26.1 % (39.0-51.0) Mean Corpuscular Volume 90.2 FL (80.0-100.0) Mean Corpuscular Hemoglobin 30.5 PG (27.0-34.0) Mean Corpuscular Hemoglobin Concent 33.8 % (32.0-36.0) Red Cell Distribution Width 15.3 % (11.6-17.2) Platelet Count 343 TH/MM3 (150-450) Mean Platelet Volume 8.8 FL (7.0-11.0) Neutrophils (%) (Auto) 87.3 % (16.0-70.0) Lymphocytes (%) (Auto) 7.5 % (9.0-44.0) Monocytes (%) (Auto) 4.7 % (0.0-8.0) Eosinophils (%) (Auto) 0.2 % (0.0-4.0) Basophils (%) (Auto) 0.3 % (0.0-2.0) Neutrophils # (Auto) 17.1 TH/MM3 (1.8-7.7) Lymphocytes # (Auto) 1.5 TH/MM3 (1.0-4.8) Monocytes # (Auto) 0.9 TH/MM3 (0-0.9) Eosinophils # (Auto) 0.0 TH/MM3 (0-0.4) Basophils # (Auto) 0.1 TH/MM3 (0-0.2) CBC Comment DIFF FINAL Differential Comment Prothrombin Time 12.1 SEC (9.8-11.6) Prothromb Time International Ratio 1.2 RATIO Activated Partial Thromboplast Time 31.4 SEC (24.3-30.1) Blood Urea Nitrogen 62 MG/DL (7-18) 69 MG/DL (7-18) Creatinine 2.15 MG/DL (0.60-1.30) 2.37 MG/DL (0.60-1.30) Random Glucose 192 MG/DL (74-106) 446 MG/DL (74-106) Total Protein 7.1 GM/DL (6.4-8.2) Albumin 2.0 GM/DL (3.4-5.0) Calcium Level 8.0 MG/DL (8.5-10.1) 7.7 MG/DL (8.5-10.1) Magnesium Level 2.1 MG/DL (1.5-2.5) Alkaline Phosphatase 69 U/L (45-117) Aspartate Amino Transf (AST/SGOT) 78 U/L (15-37) Alanine Aminotransferase (ALT/SGPT) 40 U/L (12-78) Total Bilirubin 0.5 MG/DL (0.2-1.0) Sodium Level 154 MEQ/L (136-145) 151 MEQ/L (136-145) Potassium Level 4.2 MEQ/L (3.5-5.1) 4.5 MEQ/L (3.5-5.1) Chloride Level 121 MEQ/L (98-107) 119 MEQ/L (98-107) Carbon Dioxide Level 23.5 MEQ/L (21.0-32.0) 21.9 MEQ/L (21.0-32.0) Anion Gap 10 MEQ/L (5-15) 10 MEQ/L (5-15) Estimat Glomerular Filtration Rate 30 ML/MIN (>89) 27 ML/MIN (>89) Lactic Acid Level 1.8 mmol/L (0.4-2.0) Total Creatine Kinase 2020 U/L (39-308) 4031 U/L (39-308) Creatine Kinase MB 15.3 NG/ML (0.5-3.6) 22.0 NG/ML (0.5-3.6) Creatine Kinase MB % 0.8 % (0.0-4.0) 0.5 % (0.0-4.0) Troponin I 0.10 NG/ML (0.02-0.05) 0.06 NG/ML (0.02-0.05) C-Reactive Protein 13.80 MG/DL (0.00-0.30) B-Type Natriuretic Peptide 41 PG/ML (0-100) Lipase 105 U/L (73-393) Urine Color YELLOW (YELLW/STRAW) Urine Turbidity CLEAR (CLEAR) Urine pH 5.5 (5.0-8.5) Urine Specific Dawson 1.012 (1.002-1.035) Urine Protein 30 mg/dL (NEG-TRACE) Urine Glucose (UA) NEG mg/dL (NEG) Urine Ketones NEG mg/dL (NEG) Urine Occult Blood NEG (NEG) Urine Nitrite NEG (NEG) Urine Bilirubin NEG (NEG) Urine Urobilinogen LESS THAN 2.0 MG/DL (LESS Urine Leukocyte Esterase NEG (NEG) Urine RBC 1 /hpf (0-3) Urine WBC LESS THAN 1 /hpf (0-5) Urine Squamous Epithelial Cells <1 /hpf (0-5) Urine Amorphous Sediment RARE Urine Bacteria RARE /hpf (NONE) Urine Mucus FEW /lpf (OCC) Microscopic Urinalysis Comment CULT NOT INDICATED Test 10/27/17 01:33 White Blood Count 14.6 TH/MM3 (4.0-11.0) Red Blood Count 2.61 MIL/MM3 (4.50-5.90) Hemoglobin 7.9 GM/DL (13.0-17.0) Hematocrit 23.7 % (39.0-51.0) Mean Corpuscular Volume 90.6 FL (80.0-100.0) Mean Corpuscular Hemoglobin 30.1 PG (27.0-34.0) Mean Corpuscular Hemoglobin Concent 33.2 % (32.0-36.0) Red Cell Distribution Width 15.0 % (11.6-17.2) Platelet Count 335 TH/MM3 (150-450) Mean Platelet Volume 9.0 FL (7.0-11.0) Neutrophils (%) (Auto) 89.0 % (16.0-70.0) Lymphocytes (%) (Auto) 6.3 % (9.0-44.0) Monocytes (%) (Auto) 4.5 % (0.0-8.0) Eosinophils (%) (Auto) 0.1 % (0.0-4.0) Basophils (%) (Auto) 0.1 % (0.0-2.0) Neutrophils # (Auto) 13.0 TH/MM3 (1.8-7.7) Lymphocytes # (Auto) 0.9 TH/MM3 (1.0-4.8) Monocytes # (Auto) 0.7 TH/MM3 (0-0.9) Eosinophils # (Auto) 0.0 TH/MM3 (0-0.4) Basophils # (Auto) 0.0 TH/MM3 (0-0.2) CBC Comment DIFF FINAL Differential Comment Blood Urea Nitrogen 61 MG/DL (7-18) Creatinine 2.00 MG/DL (0.60-1.30) Random Glucose 162 MG/DL (74-106) Total Protein 6.6 GM/DL (6.4-8.2) Albumin 1.7 GM/DL (3.4-5.0) Calcium Level 7.4 MG/DL (8.5-10.1) Alkaline Phosphatase 63 U/L (45-117) Aspartate Amino Transf (AST/SGOT) 138 U/L (15-37) Alanine Aminotransferase (ALT/SGPT) 46 U/L (12-78) Total Bilirubin 0.4 MG/DL (0.2-1.0) Sodium Level 155 MEQ/L (136-145) Potassium Level 3.9 MEQ/L (3.5-5.1) Chloride Level 122 MEQ/L (98-107) Carbon Dioxide Level 24.9 MEQ/L (21.0-32.0) Anion Gap 8 MEQ/L (5-15) Estimat Glomerular Filtration Rate 32 ML/MIN (>89) Protein Corrected Calcium 7.7 MG/DL (8.5-10.1) Total Creatine Kinase 3957 U/L (39-308) Creatine Kinase MB 13.4 NG/ML (0.5-3.6) Creatine Kinase MB % 0.3 % (0.0-4.0) Troponin I 0.19 NG/ML (0.02-0.05) Random Vancomycin Level 12.4 COMMENT Result Diagram: 10/27/1713210/27/17132 Microbiology Microbiology Date/Time Source Procedure Growth Status 10/26/17 03:10 Blood Peripheral Aerobic Blood Culture - Preliminary NO GROWTH IN 1 DAY Resulted 10/26/17 03:10 Blood Peripheral Anaerobic Blood Culture - Preliminary NO GROWTH IN 1 DAY Resulted 10/26/17 03:05 Blood Peripheral Aerobic Blood Culture - Preliminary NO GROWTH IN 1 DAY Resulted 10/26/17 03:05 Blood Peripheral Anaerobic Blood Culture - Preliminary NO GROWTH IN 1 DAY Resulted 10/26/17 03:14 Nasal Aspirate Influenza Types A,B Antigen (YEN) - Final NEGATIVE FOR FLU A AND B ANTIGEN.... Complete Imaging Last Impressions Chest X-Ray 10/26/17136 Signed Impressions: Service Date/Time: Thursday, October 26, 2017 01:44 - CONCLUSION: Mild increased density at the right medial base which may represent a mild area of atelectasis or consolidation. Davie Kurtz MD Patient/Family Conference Issues Discussed: * Palliative care role, purpose, approach * Additional medical, psychosocial, and spiritual history * Patients general health, functional status, and cognitive changes in the months leading up to the current hospitalization * Patient/family understanding of the current medical problems * Patient/family understanding of prognosis * Patients goals of care as best understood from advance directives and/or conversations and/or values * Current medical treatment options and benefits/burdens of those options * Likely scenarios comparing ongoing aggressive care with a transition to comfort measures only * Questions answered to the best of my ability * Palliative care contact information provided Assessment and Plan Disease Oriented Problem List: (1) sepsis, pneumonia (2) failed outpatient treatment for pneumonia (3) possible rhabdomyolysis (4) acute kidney injury (5) hypernatremic dehydration (6) dementia, with bedbound and nonverbal status (7) anemia (8) history of UTI (9) hypertension (10) CAD, history of arrhythmia (11) left heel decubitus (12) anxiety (13) chronic tremor (14) hypothyroid Symptom Scale: (1) dyspnea 0-10 Scale: Unable to quantify (2) pain 0-10 Scale: Unable to quantify (suspect musculoskeletal pain and possibly heel pain with the decubitus) (3) agitation 0-10 Scale: Unable to quantify Pertinent Non-Medical Issues Psychosocial: [facility] resident Spiritual: Legal: The patient lacks capacity for decision-making; it appears unlikely that he will regain that capacity. At the skilled nursing, the patient's sister, Snehal Edwards, had initially signed him in there as his decision maker, but the skilled nursing reports that Snehal is now a hospice patient and that they also have been unable to reach her or the 2 alternate names and phone numbers in their records (Pro Edwards and Shirin Beauchamp); I have tried several times to call each of the 3 of these with no success. I was able to leave a voicemail on the Shirin Beauchamp phone number, but the other 2 had no voice mails. Ethical issues impacting care: None . Important Contacts From the records and from the patient's nurse at his skilled nursing: Sister: Snehal Edwards [phone] (no answer with multiple attempts) Pro Edwards [phone] (no answer after multiple calls, no voicemail) Shirin Beauchamp [phone] (no answer after multiple calls, left voicemail) . Prognosis The patient is a long-term skilled nursing resident with dementia, bedbound, and now has sepsis, possible rhabdo and acute kidney injury in addition to his underlying dementia. He appears to have contractures and has skin breakdown, and now has significant dysphagia with likely aspiration. Overall, his prognosis is poor. He would be appropriate for hospice services if the goals became comfort oriented. . Code Status: Full Code Plan * FULL CODE, at least until any family can eventually be contacted to provide guidance * DECISION-MAKING: The patient lacks capacity for decision-making; it appears unlikely that he will regain that capacity. At the skilled nursing, the patient's sister, Snehal Edwards, had initially signed him in there as his decision maker, but the skilled nursing reports that Snehal is now a hospice patient and that they also have been unable to reach her or the 2 alternate names and phone numbers in their records (Pro Edwards and Shirin Beauchamp); I have tried several times to call each of the 3 of these with no success. At this point in time, there is no clear decision maker identified. * SYMPTOMS: The patient had dyspnea on arrival but that seems to be improved. He has intermittent and temporary agitation symptoms but no obvious pain at this time. I have no medication recommendations at this time. * GOALS: Pending eventual contact with family/decision makers. * I will keep trying to contact family to try to identify the actual decision- maker and discuss goals. * Palliative Care will continue to follow this patient during this hospitalization. . Thank you for the opportunity to participate in the care of Mr. Zelaya. Attestation To help prompt me to consider important information that might be impacting today's encounter and assessment, information from prior notes written by myself or my colleagues may have been "brought forward" into today's note. My signature on this note, however, is an attestation that I personally performed the exam, history, and/or decision-making noted today, and, unless otherwise indicated, the interactions with patient, family, and staff as well as the review of records all occurred today. I also attest that the listed assessment and stated plan reflect my best clinical judgment today based on the combination of historical information, prior notes, and today's exam/ interactions. When time spent is documented, it refers only to time spent today by the signer, or if indicated, combined time spent today by collaborating physician/nurse practitioner. Jackie Ramos MD Oct 27, 2017 12:30
--- NOTE | 2017-10-27 14:15 | MB ---
cc: LIANET ROBERTS M.D. DATE OF CONSULTATION 10/26/2017 REASON FOR CONSULTATION Tremor, rigidity. HISTORY OF PRESENT ILLNESS Mr. Zelaya is an 82-year-old man who has history of dementia. He was admitted to the hospital with criteria fulfilling sepsis with fever to 102 degrees, elevated white count. He has been very rigid with increased tremors in both upper extremities, noncommunicative. PAST MEDICAL HISTORY He has a history of: 1. Dementia 2. Cardiac arrhythmia 3. Hypertension 4. Coronary artery disease 5. Left heel pressure ulcer 6. Anemia 7. Diabetes MEDICATIONS PRIOR TO ADMISSION 1. DuoNeb 2. Aripiprazole 3. Amlodipine 4. Atorvastatin 5. Donepezil 6. Losartan 7. Oxybutynin 8. Docusate 9. Multivitamin 10. TUMS 11. Carvedilol 12. Iron sulfate 13. Florastor 14. Orabase Robafen 15. Requip 1 mg t.i.d. 16. Hydralazine 17. Levothyroxine 18. Levemir 19. Insulin 20. Metformin 500 mg daily 21. NovoLog insulin 22. Aspirin 81 mg daily 23. Buspirone 24. Vibramycin ALLERGIES None known. NEUROLOGIC EXAMINATION Blood pressure is 181/102, pulse 65, respiratory rate is 21, temperature 97 degrees. Higher cortical function. Patient is lethargic but arousable. He is noncommunicative. He does not answer questions. He does not follow commands. Cranial nerves intact. Motor exam, he has an increased tone in both upper and lower extremities with rigidity and marked tremulousness reflexes are symmetric. LABORATORY DATA The PT 12.1, INR 1.2, APTT 31.4. Sodium 154, potassium 4.2, chloride 121, CO2 23.5, BUN is 62, creatinine 2.15, GFR is 30, glucose 192, AST 78, ALT 40, CPK 2020. Earlier today was 4031. White count 19,600, hemoglobin 8.8, hematocrit 26%. IMPRESSION Probable metabolic encephalopathy from sepsis superimposed on dementia. He has increased tone, probable rhabdomyolysis. RECOMMENDATIONS Continue antibiotic coverage and hydration. According to his outpatient medication list, he was on Requip. Recommend continuing Requip as it may help with his tremor and rigidity. MD JENNYFER Lawrence/AGUILA /8:17 PM /6:25 AM
[2017-10-27 16:19] VITALS: BP 129/58; PULSE 80; RESP 18; TEMP 99.5; O2SAT 95
[2017-10-27] MEDS: ATORVASTATIN 10 MG TAB PO SCH (21:00)
[2017-10-27] MEDS: DONEPEZIL HCL 5 MG TAB PO SCH (21:00)
[2017-10-28] VITALS (8 sets, daily range): BP systolic 102–143; BP diastolic 54–78; PULSE 78–96; RESP 18–22; TEMP 97.8–99.8; O2SAT 93–98
[2017-10-28] MEDS: SODIUM CHLOR 0.45% 1000 ML INJ 1,000 ML IV SCH ×4 (00:45→22:54)
[2017-10-28] MEDS: PIPERACIL-TAZO 3.375 GM PREMIX 50 ML IV SCH ×4 (05:48→22:34)
[2017-10-28] MEDS: INSULIN ASPART SUPPLEMENTAL SCALE SQ SCH ×4 (08:00→21:00)
[2017-10-28] MEDS: SODIUM CHLORIDE 0.9% FLUSH 10 ML FLUSH IV FLUSH SCH ×2 (09:00→21:00)
[2017-10-28] MEDS: ARIPiprazole 5 MG TAB PO SCH (09:00)
[2017-10-28] MEDS: DOCUSATE SODIUM 50 MG/SENNA 8.6 MG TAB PO SCH ×3 (09:00→22:53)
[2017-10-28] MEDS: CYANOCOBALAMIN 1,000 MCG TAB PO SCH (09:00)
[2017-10-28] MEDS: TOLTERODINE TARTRATE 2 MG CAP LA PO SCH (09:00)
[2017-10-28] MEDS: FERROUS SULFATE 325 MG (65 MG ELEMENTAL IRON) TAB PO SCH ×2 (09:00→18:00)
[2017-10-28] MEDS: busPIRone HCL 5 MG TAB PO SCH ×3 (09:00→22:53)
[2017-10-28] MEDS: LACTOBACILLUS ACIDOPHILUS TAB PO SCH ×3 (09:00→22:53)
[2017-10-28] MEDS: LEVOTHYROXINE SODIUM 100 MCG TAB PO SCH (09:00)
[2017-10-28] MEDS: ASPIRIN 81 MG CHEW TAB CHEW SCH (09:00)
[2017-10-28] MEDS: LEVOTHYROXINE SODIUM 75 MCG TAB PO SCH (09:00)
[2017-10-28] MEDS: MULTIVITAMIN TAB PO SCH (09:00)
[2017-10-28] MEDS: RESP: ALBUTEROL 2.5 MG/IPRATROPIUM 0.5 MG NEB (SCH) NEB ×3 (10:27→22:01)
[2017-10-28] MEDS: HEPARIN SODIUM - SQ 10,000 UNITS/ML VIAL SQ SCH ×2 (10:51→22:33)
--- NOTE | 2017-10-28 11:10 | HHI.HCPN ---
Reason for visit a. To assist with evaluation and management of symptoms including: Dysphagia, agitation b. To assist medical decision maker(s) with: better understanding of current medical conditions; weighing benefits/burdens of medical treatment options; making medical treatment decisions. . 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 She confirms that the patient will communicate briefly but only with family members or people with whom he is quite familiar. He is otherwise nonverbal. He lived with his sister for many years as she cared for him, but she reports that he became "too belligerent" about a year ago and he has been a [facility]term [facility] resident since then. He has been declining the past couple years, weaker, and has been nonambulatory at the [facility]. The patient's sister, Snehal Edwards, has been his primary caregiver for many years, and has for a long time been his medical decision maker. They are two of what was 10 siblings, and the only other one alive is disabled from a stroke and living in [place]. The patient was never and had no children. This morning, his blood cultures are growing gram-positive cocci. He does not responds to my questions, and he will not follow simple commands for me, that he did look at and smile at the speech pathologist. He remains nonverbal. . Family/friend interactions Lengthy discussion by telephone with the patient's sister, Snehal Edwards. She has been his primary caregiver for many years, and has for a long time been his medical decision maker. They are two of what was 10 siblings, and the only other one alive is disabled from a stroke and living in [place]. The patient was never and had no children. She definitely wants him to be DNR, as she understands he has been declining for a couple years and she would not want him To live on life support. She is also opened for hospice consultation, knowing that he has continued to get weaker and now has significant dysphagia and pneumonia with sepsis. . Advance Directives Living Will: Never completed Health Care Surrogate: Never completed Durable Power of Hot Dimpling Machine Operator: Never completed Advance Directive Specifics Significant change in goals: The patient's sister/HCP request DNR status and hospice consult. . Objective Vital Signs Date Time Temp Pulse Resp B/P (MAP) Pulse Ox O2 Delivery O2 Flow Rate FiO2 10/28/17 08:00 97.8 81 20 142/65 (90) 95 10/28/17 00:00 99.8 78 22 107/54 (71) 95 10/27/17 16:19 99.5 80 18 129/58 (81) 95 10/27/17 11:56 97.7 78 18 120/56 (77) 96 Intake & Output 10/28/17 10/28/17 07:00 19:00 Intake Total 200 ml Balance 200 ml Intake Oral 200 ml Physical Exam CONSTITUTIONAL/GENERAL: This is an adequately nourished patient, in no apparent distress. The patient is alert but he will not turn and look at me and will not follow commands; he is continuously nonverbal here. TUBES/LINES/DRAINS: Peripheral IV, wrist restraints, protective boots on feet/ heels EYES: No scleral icterus. No injection or drainage. Fundi not examined. ENT: Unable to determine if hearing is normal. Nose without bleeding or purulent drainage. CARDIOVASCULAR: Regular rate and rhythm without murmurs, gallops, or rubs. No JVD. Peripheral pulses symmetric. RESPIRATORY/CHEST: Symmetric, unlabored respirations. Moderate amount of rhonchi and rattling bilateral. GASTROINTESTINAL: Abdomen soft, non-tender, nondistended. No hepato-splenomegaly , or palpable masses. No guarding. Bowel sounds present. MUSCULOSKELETAL: Extremities without clubbing, cyanosis, or edema. He keeps his hips and knees completely flexed, and will not let me straighten his legs. No mottling or clubbing. LYMPHATICS: No palpable cervical or supraclavicular adenopathy. NEUROLOGICAL: Awake and alert. Moves all 4 extremities intermittently, does not follow my commands, remains nonverbal. PSYCHIATRIC: Seems agitated at times, pulled out his IV yesterday .. Diagnostic Tests Laboratory Laboratory Tests Test 10/26/17 03:10 10/26/17 03:47 10/26/17 11:35 10/26/17 13:49 White Blood Count 19.6 TH/MM3 (4.0-11.0) Red Blood Count 2.89 MIL/MM3 (4.50-5.90) Hemoglobin 8.8 GM/DL (13.0-17.0) Hematocrit 26.1 % (39.0-51.0) Mean Corpuscular Volume 90.2 FL (80.0-100.0) Mean Corpuscular Hemoglobin 30.5 PG (27.0-34.0) Mean Corpuscular Hemoglobin Concent 33.8 % (32.0-36.0) Red Cell Distribution Width 15.3 % (11.6-17.2) Platelet Count 343 TH/MM3 (150-450) Mean Platelet Volume 8.8 FL (7.0-11.0) Neutrophils (%) (Auto) 87.3 % (16.0-70.0) Lymphocytes (%) (Auto) 7.5 % (9.0-44.0) Monocytes (%) (Auto) 4.7 % (0.0-8.0) Eosinophils (%) (Auto) 0.2 % (0.0-4.0) Basophils (%) (Auto) 0.3 % (0.0-2.0) Neutrophils # (Auto) 17.1 TH/MM3 (1.8-7.7) Lymphocytes # (Auto) 1.5 TH/MM3 (1.0-4.8) Monocytes # (Auto) 0.9 TH/MM3 (0-0.9) Eosinophils # (Auto) 0.0 TH/MM3 (0-0.4) Basophils # (Auto) 0.1 TH/MM3 (0-0.2) CBC Comment DIFF FINAL Differential Comment Prothrombin Time 12.1 SEC (9.8-11.6) Prothromb Time International Ratio 1.2 RATIO Activated Partial Thromboplast Time 31.4 SEC (24.3-30.1) Blood Urea Nitrogen 62 MG/DL (7-18) 69 MG/DL (7-18) Creatinine 2.15 MG/DL (0.60-1.30) 2.37 MG/DL (0.60-1.30) Random Glucose 192 MG/DL (74-106) 446 MG/DL (74-106) Total Protein 7.1 GM/DL (6.4-8.2) Albumin 2.0 GM/DL (3.4-5.0) Calcium Level 8.0 MG/DL (8.5-10.1) 7.7 MG/DL (8.5-10.1) Magnesium Level 2.1 MG/DL (1.5-2.5) Alkaline Phosphatase 69 U/L (45-117) Aspartate Amino Transf (AST/SGOT) 78 U/L (15-37) Alanine Aminotransferase (ALT/SGPT) 40 U/L (12-78) Total Bilirubin 0.5 MG/DL (0.2-1.0) Sodium Level 154 MEQ/L (136-145) 151 MEQ/L (136-145) Potassium Level 4.2 MEQ/L (3.5-5.1) 4.5 MEQ/L (3.5-5.1) Chloride Level 121 MEQ/L (98-107) 119 MEQ/L (98-107) Carbon Dioxide Level 23.5 MEQ/L (21.0-32.0) 21.9 MEQ/L (21.0-32.0) Anion Gap 10 MEQ/L (5-15) 10 MEQ/L (5-15) Estimat Glomerular Filtration Rate 30 ML/MIN (>89) 27 ML/MIN (>89) Lactic Acid Level 1.8 mmol/L (0.4-2.0) Total Creatine Kinase 2020 U/L (39-308) 4031 U/L (39-308) Creatine Kinase MB 15.3 NG/ML (0.5-3.6) 22.0 NG/ML (0.5-3.6) Creatine Kinase MB % 0.8 % (0.0-4.0) 0.5 % (0.0-4.0) Troponin I 0.10 NG/ML (0.02-0.05) 0.06 NG/ML (0.02-0.05) C-Reactive Protein 13.80 MG/DL (0.00-0.30) B-Type Natriuretic Peptide 41 PG/ML (0-100) Lipase 105 U/L (73-393) Urine Color YELLOW (YELLW/STRAW) Urine Turbidity CLEAR (CLEAR) Urine pH 5.5 (5.0-8.5) Urine Specific [place] 1.012 (1.002-1.035) Urine Protein 30 mg/dL (NEG-TRACE) Urine Glucose (UA) NEG mg/dL (NEG) Urine Ketones NEG mg/dL (NEG) Urine Occult Blood NEG (NEG) Urine Nitrite NEG (NEG) Urine Bilirubin NEG (NEG) Urine Urobilinogen LESS THAN 2.0 MG/DL (LESS Urine Leukocyte Esterase NEG (NEG) Urine RBC 1 /hpf (0-3) Urine WBC LESS THAN 1 /hpf (0-5) Urine Squamous Epithelial Cells <1 /hpf (0-5) Urine Amorphous Sediment RARE Urine Bacteria RARE /hpf (NONE) Urine Mucus FEW /lpf (OCC) Microscopic Urinalysis Comment CULT NOT INDICATED Test 10/27/17 01:33 White Blood Count 14.6 TH/MM3 (4.0-11.0) Red Blood Count 2.61 MIL/MM3 (4.50-5.90) Hemoglobin 7.9 GM/DL (13.0-17.0) Hematocrit 23.7 % (39.0-51.0) Mean Corpuscular Volume 90.6 FL (80.0-100.0) Mean Corpuscular Hemoglobin 30.1 PG (27.0-34.0) Mean Corpuscular Hemoglobin Concent 33.2 % (32.0-36.0) Red Cell Distribution Width 15.0 % (11.6-17.2) Platelet Count 335 TH/MM3 (150-450) Mean Platelet Volume 9.0 FL (7.0-11.0) Neutrophils (%) (Auto) 89.0 % (16.0-70.0) Lymphocytes (%) (Auto) 6.3 % (9.0-44.0) Monocytes (%) (Auto) 4.5 % (0.0-8.0) Eosinophils (%) (Auto) 0.1 % (0.0-4.0) Basophils (%) (Auto) 0.1 % (0.0-2.0) Neutrophils # (Auto) 13.0 TH/MM3 (1.8-7.7) Lymphocytes # (Auto) 0.9 TH/MM3 (1.0-4.8) Monocytes # (Auto) 0.7 TH/MM3 (0-0.9) Eosinophils # (Auto) 0.0 TH/MM3 (0-0.4) Basophils # (Auto) 0.0 TH/MM3 (0-0.2) CBC Comment DIFF FINAL Differential Comment Blood Urea Nitrogen 61 MG/DL (7-18) Creatinine 2.00 MG/DL (0.60-1.30) Random Glucose 162 MG/DL (74-106) Total Protein 6.6 GM/DL (6.4-8.2) Albumin 1.7 GM/DL (3.4-5.0) Calcium Level 7.4 MG/DL (8.5-10.1) Alkaline Phosphatase 63 U/L (45-117) Aspartate Amino Transf (AST/SGOT) 138 U/L (15-37) Alanine Aminotransferase (ALT/SGPT) 46 U/L (12-78) Total Bilirubin 0.4 MG/DL (0.2-1.0) Sodium Level 155 MEQ/L (136-145) Potassium Level 3.9 MEQ/L (3.5-5.1) Chloride Level 122 MEQ/L (98-107) Carbon Dioxide Level 24.9 MEQ/L (21.0-32.0) Anion Gap 8 MEQ/L (5-15) Estimat Glomerular Filtration Rate 32 ML/MIN (>89) Protein Corrected Calcium 7.7 MG/DL (8.5-10.1) Total Creatine Kinase 3957 U/L (39-308) Creatine Kinase MB 13.4 NG/ML (0.5-3.6) Creatine Kinase MB % 0.3 % (0.0-4.0) Troponin I 0.19 NG/ML (0.02-0.05) Random Vancomycin Level 12.4 COMMENT Result Diagram: 10/27/1713210/27/17132 Microbiology Microbiology Date/Time Source Procedure Growth Status 10/26/17 03:10 Blood Peripheral Aerobic Blood Culture - Preliminary Staph Sp Coagulase Negative Resulted 10/26/17 03:10 Anaerobic Blood Culture - Preliminary Gram Positive Cocci Resulted 10/26/17 03:05 Blood Peripheral Aerobic Blood Culture - Preliminary Staph Sp Coagulase Negative Resulted 10/26/17 03:05 Anaerobic Blood Culture - Preliminary Gram Positive Cocci Resulted 10/26/17 03:14 Nasal Aspirate Influenza Types A,B Antigen (YEN) - Final NEGATIVE FOR FLU A AND B ANTIGEN.... Complete Imaging Last Impressions Chest X-Ray 10/26/17136 Signed Impressions: Service Date/Time: Thursday, October 26, 2017 01:44 - CONCLUSION: Mild increased density at the right medial base which may represent a mild area of atelectasis or consolidation. 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 (3) failed outpatient treatment for pneumonia (4) possible rhabdomyolysis (5) acute kidney injury (6) hypernatremic dehydration (7) dementia, with bedbound and nonverbal status (8) anemia (9) history of UTI (10) hypertension (11) CAD, history of arrhythmia (12) left heel decubitus (13) anxiety (14) chronic tremor (15) hypothyroid Symptom Scale: (1) dyspnea 0-10 Scale: Unable to quantify (2) pain 0-10 Scale: Unable to quantify (suspect musculoskeletal pain and possibly heel pain with the decubitus) (3) agitation 0-10 Scale: Unable to quantify Pertinent Non-Medical Issues Psychosocial: [facility] resident Spiritual: Legal: The patient lacks capacity for decision-making; it appears unlikely that he will regain that capacity. At the [facility], the patient's sister, Snehal Edwards, had initially signed him in there as his decision maker, but the [facility] reports that Snehal is now a hospice patient and that they also have been unable to reach her or the 2 alternate names and phone numbers in their records (Pro Edwards and Shirinzulma Beauchamp); I have tried several times to call each of the 3 of these with no success. I was able to leave a voicemail on the Shirin Beauchamp phone number, but the other 2 had no voice mails. Ethical issues impacting care: None . Important Contacts From the records and from the patient's nurse at his [facility]: Sister: Snehal Edwards, his healthcare proxy: call the cell phone of her , Pro Edwards cell phone [phone] Shirin Beauchamp [phone] (no answer after multiple calls, left voicemail on 10/27 but got no return call) . Prognosis The patient is a long-term [facility] resident s/p TBI at age 5 with long- term disability, and now with dementia, bedbound, and sepsis, possible rhabdo and acute kidney injury in addition to his underlying dementia. He appears to have contractures and has skin breakdown, and now has significant dysphagia with likely aspiration. Overall, his prognosis is quite poor. He is appropriate for hospice services. . Code Status: No Code Plan * DO NOT RESUSCITATE, per request of patient's healthcare proxy/sister, Snehal Edwards 10/28/17 * DECISION-MAKING: The patient lacks capacity for decision-making; and he will not regain that capacity. His sister, Snehal Edwards, has been his longtime caregiver and longtime healthcare proxy, and she continues in that role. The patient was never , has no children, and the only other sibling is disabled from a stroke. * SYMPTOMS: The patient had dyspnea on arrival but that seems to be improved. He has intermittent and temporary agitation symptoms but no obvious pain at this time. I have no medication recommendations at this time. * GOALS: On 10/28/17, the patient's sister/HCP requested DNR status and hospice consultation. She understands that he has been declining significantly over the past couple years, and that he now has dysphagia and probable aspiration. She wants to focus to be on comfort when he returns to the [facility] after this hospitalization. * Hospice consult placed. * Palliative Care will continue to follow this patient during this hospitalization. . Time Spent Total Floor Time (mins): 41 Face to Face Time (mins): 13 >50% Counseling/Coord of Care: Yes (d/w RN) Attestation To help prompt me to consider important information that might be impacting today's encounter and assessment, information from prior notes written by myself or my colleagues may have been "brought forward" into today's note. My signature on this note, however, is an attestation that I personally performed the exam, history, and/or decision-making noted today, and, unless otherwise indicated, the interactions with patient, family, and staff as well as the review of records all occurred today. I also attest that the listed assessment and stated plan reflect my best clinical judgment today based on the combination of historical information, prior notes, and today's exam/ interactions. When time spent is documented, it refers only to time spent today by the signer, or if indicated, combined time spent today by collaborating physician/nurse practitioner. Jackie Ramos MD Oct 28, 2017 11:10
--- NOTE | 2017-10-28 13:11 | HHI.PR ---
Subjective Remarks Seen earlier today. Appears in not acute distress. Some noisy breathing , however he is saturating well air. Seen by palliative care, patient is DO NOT RESUSCITATE. Plan for hospice consult. Objective Vitals Vital Signs Date Time Temp Pulse Resp B/P (MAP) Pulse Ox O2 Delivery O2 Flow Rate FiO2 10/28/17 11:26 98.9 96 22 143/66 (91) 93 10/28/17 08:00 97.8 81 20 142/65 (90) 95 10/28/17 00:00 99.8 78 22 107/54 (71) 95 10/27/17 16:19 99.5 80 18 129/58 (81) 95 I/O 10/27/17 10/27/17 10/27/17 10/28/17 10/28/17 10/28/17 07:00 15:00 23:00 07:00 15:00 23:00 Intake Total 950 ml 500 ml Balance 950 ml 500 ml Intake Oral 200 ml IV Total 950 ml 300 ml Result Diagram: 10/27/1713210/27/17132 Imaging Last Impressions Chest X-Ray 10/26/17136 Signed Impressions: Service Date/Time: Thursday, October 26, 2017 01:44 - CONCLUSION: Mild increased density at the right medial base which may represent a mild area of atelectasis or consolidation. Davie Kurtz MD Objective Remarks GENERAL: This is a well-nourished, well-developed male patient, in no apparent distress. Mostly nonverbal. CARDIOVASCULAR: Regular rate and rhythm without murmurs, gallops, or rubs. RESPIRATORY: Poor air movement with crackles bilaterally. GASTROINTESTINAL: Abdomen soft, non-tender, nondistended. No hepato-splenomegaly , or palpable masses. No guarding. MUSCULOSKELETAL: Bilateral lower extremity contractures. Due to severity of contractures, unable to fully assess left heel pressure ulcer but obvious drainage noted with seepage through patients sock. NEUROLOGICAL: Awake. Follows some simple commands. Mostly nonverbal but did yell out when attempting to evaluated left heel. A/P Assessment and Plan 82-year-old male with past medical history significant for dementia who is basically nonverbal, hypertension, coronary artery disease, anemia, diabetes, hypothyroidism, long-standing tremor and left heel pressure ulcer who presents to [facility] ED with complaints of progressive shortness of breath. Patient is with severe dementia mostly bedbound, failed swallow evaluation, palliative care following. Patient with high risk of aspiration recurrent PNAs, pressure ulcers. Patient meets sepsis criteria with fever 102, leukocytosis with white count of 19.6 and source of multi lobar pneumonia, failed outpatient treatment. Acute hypoxic respiratory failure, resolving. - CXR reveals mild increased density of the right medial base, images reviewed by me - Concern for silent aspiration. We'll obtain swallow evaluation by speech therapy - IV Zosyn - Supportive care - DuoNebs - Continue to monitor respiratory status and maintain supplemental oxygen to keep O2 sats above 92% - monitor white count - follow up on blood culture results - consult palliative care Hypernatremia Rhabdomyolysis - CK 2019. Continue to monitor CK trend. - IVF with sodium bicarb - monitor sodium level Elevated troponin - initial trop 0.10 - continue to monitor cardiac enzymes - continuous cardiac monitoring AUSTYN on CKD - Suspect due to dehydration, poor oral intake - Creatinine 2.15, GFR 30, creatinine 11/26/16 1.75 - Avoid nephrotoxic agents - Continue to monitor kidney function Anemia, chronic, on iron supplementation at home - no active bleeding - monitor CBC Hypertension - Patient is currently hypotensive - Hold patient's home dose of hydralazine, losartan, amlodipine and carvedilol - monitor BP and adjust treatment accordingly DM - accucheck - ISS - Patient uses Levemir 25 units subcutaneous before meals breakfast at home. Will monitor BS and initiate Levemir as indicated. Dementia BLE contractures - Continue patient on home dose of Donezepil 10 mg daily - PT/OT eval/tx Left heel pressure ulcer - consult wound care - Float heels off the bed/multipolus boots Hypothyroidism - continue patient on home dose of levothyroxine 175 g daily DVT prophylaxis - Heparin sq Discussed Condition With patient, nurse, Dr Herrera palliative care Code Status: DO NOT RESUSCITATE Failed swallow evaluation Palliative care following for goals of care . Plan for hospice evaluation Discharge Planning Pending hospice evaluation Nubia Monk MD Oct 28, 2017 13:11
[2017-10-28] MEDS: DONEPEZIL HCL 5 MG TAB PO SCH ×2 (22:31→22:53)
[2017-10-28] MEDS: ATORVASTATIN 10 MG TAB PO SCH ×2 (22:33→22:53)
[2017-10-29] VITALS (9 sets, daily range): BP systolic 123–168; BP diastolic 60–89; PULSE 83–96; RESP 17–22; TEMP 96.4–99.9; O2SAT 9–98
--- NOTE | 2017-10-29 00:06 | RADRPT ---
EXAM DATE/TIME: 10/28/2017 23:32 [facility] COMPARISON: CHEST SINGLE AP, October 26, 2017, 1:44. INDICATIONS : Shortness of breath. Evaluate for pulmonary edema. MEDICAL HISTORY : Unobtainable. SURGICAL HISTORY : Unobtainable. ENCOUNTER: Subsequent ACUITY: 3 days PAIN SCORE: Non-responsive. LOCATION: Bilateral chest FINDINGS: The heart size is normal. There is increased density medial right base. The left lung is clear. No ef fusion is seen. CONCLUSION: Right medial base atelectasis or consolidation. Pulmonary edema is not seen. Davie Kurtz MD on October 29, 2017 at 0:04 Board Certified Radiologist. This report was verified electronically.
[2017-10-29] MEDS: PIPERACIL-TAZO 3.375 GM PREMIX 50 ML IV SCH ×4 (04:04→23:00)
[2017-10-29] MEDS: SODIUM CHLOR 0.45% 1000 ML INJ 1,000 ML IV SCH ×2 (04:05→13:54)
[2017-10-29] MEDS: INSULIN ASPART SUPPLEMENTAL SCALE SQ SCH ×4 (08:00→21:00)
[2017-10-29] MEDS: FERROUS SULFATE 325 MG (65 MG ELEMENTAL IRON) TAB PO SCH ×2 (09:00→18:00)
[2017-10-29] MEDS: TOLTERODINE TARTRATE 2 MG CAP LA PO SCH (09:00)
[2017-10-29] MEDS: ARIPiprazole 5 MG TAB PO SCH (09:00)
[2017-10-29] MEDS: CYANOCOBALAMIN 1,000 MCG TAB PO SCH (09:00)
[2017-10-29] MEDS: MULTIVITAMIN TAB PO SCH (09:00)
[2017-10-29] MEDS: ASPIRIN 81 MG CHEW TAB CHEW SCH (09:00)
[2017-10-29] MEDS: LEVOTHYROXINE SODIUM 100 MCG TAB PO SCH (09:00)
[2017-10-29] MEDS: SODIUM CHLORIDE 0.9% FLUSH 10 ML FLUSH IV FLUSH SCH ×2 (09:00→23:35)
[2017-10-29] MEDS: LEVOTHYROXINE SODIUM 75 MCG TAB PO SCH (09:00)
[2017-10-29] MEDS: RESP: ALBUTEROL 2.5 MG/IPRATROPIUM 0.5 MG NEB (SCH) NEB ×4 (10:20→21:39)
--- NOTE | 2017-10-29 10:55 | HHI.PR ---
Subjective Remarks in bed. less noisy breathing, he appears innad. No fevers noted overnight. VS fairly stable. Objective Vitals Vital Signs Date Time Temp Pulse Resp B/P (MAP) Pulse Ox O2 Delivery O2 Flow Rate FiO2 10/29/17 07:41 96.5 83 20 142/71 (94) 93 10/29/17 04:00 99.9 94 22 134/68 (90) 94 10/29/17 04:00 85 10/29/17 00:00 93 10/29/17 00:00 99.2 96 22 147/70 (95) 94 10/28/17 22:04 96 Nasal Cannula 2.00 10/28/17 21:15 98.1 92 18 139/78 (98) 98 10/28/17 20:00 95 10/28/17 15:26 98.5 89 20 102/55 (71) 94 10/28/17 14:23 98 Nasal Cannula 2.00 10/28/17 11:26 98.9 96 22 143/66 (91) 93 I/O 10/28/17 10/28/17 10/28/17 10/29/17 10/29/17 10/29/17 07:00 15:00 23:00 07:00 15:00 23:00 Intake Total 0 ml 220 ml Output Total 900 ml Balance 0 ml -680 ml Intake Oral 0 ml 220 ml Output Urine Total 900 ml # Bowel Movements 0 Result Diagram: 10/27/1713210/27/17132 Objective Remarks GENERAL: This is a well-nourished, well-developed male patient, in no apparent distress. Mostly nonverbal. CARDIOVASCULAR: Regular rate and rhythm without murmurs, gallops, or rubs. RESPIRATORY: Poor air movement with crackles bilaterally. GASTROINTESTINAL: Abdomen soft, non-tender, nondistended. No hepato-splenomegaly , or palpable masses. No guarding. MUSCULOSKELETAL: Bilateral lower extremity contractures. Due to severity of contractures, unable to fully assess left heel pressure ulcer but obvious drainage noted with seepage through patients sock. NEUROLOGICAL: Awake. Follows some simple commands. Mostly nonverbal but did yell out when attempting to evaluated left heel. A/P Assessment and Plan 82-year-old male with past medical history significant for dementia who is basically nonverbal, hypertension, coronary artery disease, anemia, diabetes, hypothyroidism, long-standing tremor and left heel pressure ulcer who presents to [facility] ED with complaints of progressive shortness of breath. Patient is with severe dementia mostly bedbound, failed swallow evaluation, palliative care following. Patient with high risk of aspiration recurrent PNAs, pressure ulcers. Patient meets sepsis criteria with fever 102, leukocytosis with white count of 19.6 and source of multi lobar pneumonia, failed outpatient treatment. Acute hypoxic respiratory failure, resolving. - CXR reveals mild increased density of the right medial base, images reviewed by me - Concern for silent aspiration. We'll obtain swallow evaluation by speech therapy - IV Zosyn - Supportive care - DuoNebs - Continue to monitor respiratory status and maintain supplemental oxygen to keep O2 sats above 92% - monitor white count - follow up on blood culture results - consult palliative care Hypernatremia Rhabdomyolysis - CK 2019. Continue to monitor CK trend. - IVF with sodium bicarb - monitor sodium level Elevated troponin - initial trop 0.10 - continue to monitor cardiac enzymes - continuous cardiac monitoring AUSTYN on CKD - Suspect due to dehydration, poor oral intake - Creatinine 2.15, GFR 30, creatinine 11/26/16 1.75 - Avoid nephrotoxic agents - Continue to monitor kidney function Anemia, chronic, on iron supplementation at home - no active bleeding - monitor CBC Hypertension - Patient is currently hypotensive - Hold patient's home dose of hydralazine, losartan, amlodipine and carvedilol - monitor BP and adjust treatment accordingly DM - accucheck - ISS - Patient uses Levemir 25 units subcutaneous before meals breakfast at home. Will monitor BS and initiate Levemir as indicated. Dementia BLE contractures - Continue patient on home dose of Donezepil 10 mg daily - PT/OT eval/tx Left heel pressure ulcer - consult wound care - Float heels off the bed/multipolus boots Hypothyroidism - continue patient on home dose of levothyroxine 175 g daily DVT prophylaxis - Heparin sq Discussed Condition With patient, nurse, Dr Herrera palliative care Code Status: DO NOT RESUSCITATE Failed swallow evaluation Palliative care following for goals of care . Plan for hospice evaluation Discharge Planning Pending hospice evaluation Nubia Monk MD Oct 29, 2017 10:55
[2017-10-29] MEDS ORDERED: VANCOMYCIN INJ 1,500 MG in SODIUM CHLORID 0.9% 500 ML INJ 500 ML IV ONE (11:00)
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
[2017-10-29] MEDS: HEPARIN SODIUM - SQ 10,000 UNITS/ML VIAL SQ SCH ×2 (13:56→23:36)
--- NOTE | 2017-10-29 18:39 | HHI.PR ---
Review/Management Diagnosis Dementia. Metabolic encephalopathy--improving Diagnosis/Plan: Subjective Subjective Comments No acute events reported Active Medications Current Medications Medications (Trade) Dose Ordered Sig/Eduardo Route Start Time Stop Time Status Last Admin Pharmacy Profile Note 0 ml @ 0 mls/hr UNSCH OTHER 10/26/17 05:45 (Duoneb Neb) 1 ampule Q4HR NEB PRN NEB 10/26/17 05:45 (NS Flush) 2 ml UNSCH PRN IV FLUSH 10/26/17 05:45 (NS Flush) 2 ml BID IV FLUSH 10/26/17 09:00 10/29/17 09:00 (Zofran Inj) 4 mg Q6H PRN IVP 10/26/17 05:45 (Tylenol) 650 mg Q6H PRN PO 10/26/17 05:45 ([place] 5-325 Mg) 1 tab Q4H PRN PO 10/26/17 05:45 (Morphine Inj) 2 mg Q3H PRN IV PUSH 10/26/17 05:45 (Lucia-Colace) 1 tab BID PO 10/26/17 09:00 10/26/17 09:51 (Milk Of Magnesia Liq) 30 ml Q12H PRN PO 10/26/17 05:45 (Senokot) 17.2 mg Q12H PRN PO 10/26/17 05:45 (Dulcolax Supp) 10 mg DAILY PRN RECTAL 10/26/17 05:45 (Lactulose Liq) 30 ml DAILY PRN PO 10/26/17 05:45 (D50w (Vial) Inj) 50 ml UNSCH PRN IV PUSH 10/26/17 08:15 (Glucagon Inj) 1 mg UNSCH PRN OTHER 10/26/17 08:15 (NovoLOG SUPPLEMENTAL SCALE) 1 ACHS SLIDING SCALE SQ 10/26/17 12:00 10/27/17 09:56 (Abilify) 5 mg DAILY PO 10/26/17 09:00 10/26/17 09:52 (Aspirin Chew) 81 mg DAILY CHEW 10/26/17 09:00 10/26/17 09:52 (Lipitor) 5 mg HS PO 10/26/17 21:00 (Buspar) 5 mg BID PO 10/26/17 09:00 10/26/17 09:51 (Aricept) 10 mg HS PO 10/26/17 21:00 (Ferrous Sulfate) 325 mg BIDPC PO 10/26/17 09:00 10/26/17 09:51 (Vitamin B12) 500 mcg DAILY PO 10/26/17 09:00 (Synthroid) 100 mcg DAILY PO 10/26/17 09:00 10/26/17 09:52 (Theragran) 1 tab DAILY PO 10/26/17 09:00 10/26/17 09:51 (Detrol La) 2 mg DAILY PO 10/26/17 09:30 (Lactinex) 1 tab BID PO 10/26/17 21:00 (Synthroid) 75 mcg DAILY PO 10/26/17 09:00 10/26/17 09:52 (Heparin Inj) 5,000 units Q12HR SQ 10/26/17 21:00 10/29/17 13:56 Piperacillin Sod/ Tazobactam Sod 50 ml @ 100 mls/hr Q6H IV 10/26/17 17:00 10/29/17 13:56 Sodium Chloride 1,000 ml @ 125 mls/hr Q8H IV 10/26/17 16:45 10/29/17 13:54 (Requip) 1 mg Q8HR PO 10/26/17 22:00 (Duoneb Neb) 1 ampule Q4HR WHILE AWAKE NEB NEB 10/28/17 12:00 10/29/17 17:30 (Santyl Oint) 1 applic DAILY TOPICAL 10/29/17 12:00 Allergies Allergies Coded Allergies No Known Allergies (Unverified10/26/17) Exam I&O / VS Vital Signs Date Time Temp Pulse Resp B/P (MAP) Pulse Ox O2 Delivery O2 Flow Rate FiO2 10/29/17 17:05 96.4 85 20 168/74 (105) 95 10/29/17 12:50 96.4 89 18 134/64 (87) 95 10/29/17 07:41 96.5 83 20 142/71 (94) 93 10/29/17 04:00 99.9 94 22 134/68 (90) 94 10/29/17 04:00 85 10/29/17 00:00 93 10/29/17 00:00 99.2 96 22 147/70 (95) 94 10/28/17 22:04 96 Nasal Cannula 2.00 10/28/17 21:15 98.1 92 18 139/78 (98) 98 10/28/17 20:00 95 Exam Comments alert, follow simple commands. No speech CN--pupils 2 mm symmetric and reactive. EOM--intact MOTOR 5/5 BUE, less rigid BUE tremors Objective Micro and Labs Laboratory Tests Test 10/29/17 07:15 Random Vancomycin Level 11.7 Date/Time Source Procedure Growth Status 10/26/17 03:10 Blood Peripheral Aerobic Blood Culture - Preliminary Staph Sp Coagulase Negative Resulted 10/26/17 03:10 Anaerobic Blood Culture - Preliminary Staph Sp Coagulase Negative Resulted 10/26/17 03:14 Nasal Aspirate Influenza Types A,B Antigen (YEN) - Final NEGATIVE FOR FLU A AND B ANTIGEN.... Complete Pro Beauchamp MD PhD Oct 29, 2017 18:39
[2017-10-29] MEDS: COLLAGENASE OINT 30 GM TUBE TOPICAL SCH (19:27)
[2017-10-29] MEDS: LACTOBACILLUS ACIDOPHILUS TAB PO SCH (21:00)
[2017-10-29] MEDS: DOCUSATE SODIUM 50 MG/SENNA 8.6 MG TAB PO SCH (21:00)
[2017-10-29] MEDS: busPIRone HCL 5 MG TAB PO SCH (21:00)
[2017-10-29] MEDS: DEXT 5%-NACL 0.45% 1000 ML INJ 1,000 ML IV SCH (23:36)
[2017-10-30] VITALS (7 sets, daily range): BP systolic 116–180; BP diastolic 63–82; PULSE 68–89; RESP 15–20; TEMP 96.7–98.7; O2SAT 93–99
[2017-10-30] MEDS: PIPERACIL-TAZO 3.375 GM PREMIX 50 ML IV SCH ×4 (04:50→23:17)
[2017-10-30] MEDS: DEXT 5%-NACL 0.45% 1000 ML INJ 1,000 ML IV SCH ×2 (04:56→17:25)
[2017-10-30] MEDS: LEVOTHYROXINE SODIUM 100 MCG TAB PO SCH (09:00)
[2017-10-30] MEDS: SODIUM CHLORIDE 0.9% FLUSH 10 ML FLUSH IV FLUSH SCH ×2 (09:00→23:11)
[2017-10-30] MEDS: FERROUS SULFATE 325 MG (65 MG ELEMENTAL IRON) TAB PO SCH ×2 (09:00→17:41)
[2017-10-30] MEDS: TOLTERODINE TARTRATE 2 MG CAP LA PO SCH (09:00)
[2017-10-30] MEDS: CYANOCOBALAMIN 1,000 MCG TAB PO SCH (09:00)
[2017-10-30] MEDS: ARIPiprazole 5 MG TAB PO SCH (09:00)
[2017-10-30] MEDS: LACTOBACILLUS ACIDOPHILUS TAB PO SCH ×2 (09:00→21:00)
[2017-10-30] MEDS: ASPIRIN 81 MG CHEW TAB CHEW SCH (09:00)
[2017-10-30] MEDS: DOCUSATE SODIUM 50 MG/SENNA 8.6 MG TAB PO SCH ×2 (09:00→21:00)
[2017-10-30] MEDS: MULTIVITAMIN TAB PO SCH (09:00)
[2017-10-30] MEDS: LEVOTHYROXINE SODIUM 75 MCG TAB PO SCH (09:00)
[2017-10-30] MEDS: busPIRone HCL 5 MG TAB PO SCH ×2 (09:00→21:00)
[2017-10-30] MEDS: COLLAGENASE OINT 30 GM TUBE TOPICAL SCH (09:38)
[2017-10-30] MEDS: HEPARIN SODIUM - SQ 10,000 UNITS/ML VIAL SQ SCH ×2 (09:39→23:17)
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
[2017-10-30] MEDS: INSULIN ASPART SUPPLEMENTAL SCALE SQ SCH ×4 (12:00→23:16)
--- NOTE | 2017-10-30 12:20 | HHI.PR ---
Subjective Remarks in no acute distress. looks comfortable. no fever. d/w the RN. Objective Vitals Vital Signs Date Time Temp Pulse Resp B/P (MAP) Pulse Ox O2 Delivery O2 Flow Rate FiO2 10/30/17 08:00 97.5 68 20 116/63 (80) 94 10/30/17 04:21 98.7 81 15 147/65 (92) 94 10/30/17 04:04 84 10/30/17 00:00 89 10/29/17 23:50 98.8 90 18 123/60 (81) 98 10/29/17 21:42 97 Nasal Cannula 2.00 10/29/17 21:30 97 Nasal Cannula 2.00 10/29/17 20:13 97.3 96 17 139/89 (106) 97 10/29/17 20:10 94 10/29/17 17:05 96.4 85 20 168/74 (105) 95 10/29/17 12:50 96.4 89 18 134/64 (87) 95 I/O 10/29/17 10/29/17 10/29/17 10/30/17 10/30/17 10/30/17 07:00 15:00 23:00 07:00 15:00 23:00 Intake Total 220 ml 2000 ml Output Total 900 ml Balance -680 ml 2000 ml Intake Oral 220 ml 0 ml IV Total 2000 ml Output Urine Total 900 ml # Voids 12 # Bowel Movements 0 0 Result Diagram: 10/27/17 0133 10/27/17 0133 Imaging Last Impressions Chest X-Ray 10/28/17 0000 Signed Impressions: Service Date/Time: Saturday, October 28, 2017 23:32 - CONCLUSION: Right medial base atelectasis or consolidation. Pulmonary edema is not seen. Davie Kurtz MD Objective Remarks GENERAL: elderly male, in no apparent distress. CARDIOVASCULAR: Regular rate and regular rhythm without murmurs, gallops, or rubs. RESPIRATORY: Clear to auscultation. Breath sounds equal bilaterally. No wheezes , rales, or rhonchi. GASTROINTESTINAL: Abdomen soft, non-tender, nondistended. Normal, active bowel sounds MUSCULOSKELETAL: Extremities without clubbing, cyanosis, or edema. NEURO: awake but non-verbal. Medications and IVs Inpatient Medications Acetaminophen (Tylenol) 650 mg Q6H PRN PO FEVER/PAIN SCALE 1 TO 2; Start at 05:45 Acetaminophen/ Hydrocodone Bitart ([place] 5-325 Mg) 1 tab Q4H PRN PO PAIN SCALE 3 TO 5; Start 10/26/17 at 05:45 Albuterol/ Ipratropium (Duoneb Neb) 1 ampule Q4HR WHILE AWAKE NEB NEB Last administered on 10/29/17at 21:39; Start 10/28/17 at 12:00 Aripiprazole (Abilify) 5 mg DAILY PO Last administered on 10/26/17at 09:52; Start 10/26/17 at 09:00 Aspirin (Aspirin Chew) 81 mg DAILY CHEW Last administered on 10/26/17at 09:52; Start 10/26/17 at 09:00 Atorvastatin Calcium (Lipitor) 5 mg HS PO ; Start 10/26/17 at 21:00 Azithromycin 500 mg/Sodium Chloride 250 ml @ 250 mls/hr ONCE ONCE IV Last administered on 10/26/17at 03:53; Start 10/26/17 at 02:15; Stop 10/26/17 at 03:14 ; Status DC Bisacodyl (Dulcolax Supp) 10 mg DAILY PRN RECTAL SEVERE CONSITIPATION; Start at 05:45 Buspirone HCl (Buspar) 5 mg BID PO Last administered on 10/26/17at 09:51; Start 10/26/17 at 09:00 Cefepime HCl 2000 mg/Sodium Chloride 100 ml @ 200 mls/hr Q24H IV ; Start at 05:00; Stop 10/27/17 at 05:00; Status DC Collagenase (Santyl Oint) 1 applic DAILY TOPICAL Last administered on at 09:38; Start 10/29/17 at 12:00 Cyanocobalamin (Vitamin B12) 500 mcg DAILY PO ; Start 10/26/17 at 09:00 Dextrose (D50w (Vial) Inj) 50 ml UNSCH PRN IV PUSH HYPOGLYCEMIA-SEE COMMENTS; Start 10/26/17 at 08:15 Dextrose/Sodium Chloride 1,000 ml @ 100 mls/hr Q10H IV Last administered on at 04:56; Start 10/29/17 at 21:15 Donepezil HCl (Aricept) 10 mg HS PO ; Start 10/26/17 at 21:00 Ferrous Sulfate (Ferrous Sulfate) 325 mg BIDPC PO Last administered on at 09:51; Start 10/26/17 at 09:00 Glucagon (Glucagon Inj) 1 mg UNSCH PRN OTHER HYPOGLYCEMIA-SEE COMMENTS; Start 10/26/17 at 08:15 Heparin Sodium (Porcine) (Heparin Inj) 5,000 units Q12HR SQ Last administered on 10/30/17at 09:39; Start 10/26/17 at 21:00 Insulin Aspart (NovoLOG SUPPLEMENTAL SCALE) 1 ACHS SLIDING SCALE SQ Last administered on 10/27/17at 09:56; Start 10/26/17 at 12:00 Lactobacillus Acidophilus (Lactinex) 1 tab BID PO ; Start 10/26/17 at 21:00 Lactulose (Lactulose Liq) 30 ml DAILY PRN PO SEVERE CONSITIPATION; Start at 05:45 Levothyroxine Sodium (Synthroid) 75 mcg DAILY PO Last administered on at 09:52; Start 10/26/17 at 09:00 Magnesium Hydroxide (Milk Of Magnesia Liq) 30 ml Q12H PRN PO Mild constipation ; Start 10/26/17 at 05:45 Methylprednisolone Sodium Succinate (SoluMEDROL INJ) 125 mg ONCE ONCE IV PUSH Last administered on 10/26/17at 03:54; Start 10/26/17 at 02:15; Stop 10/26/17 at 02:16; Status DC Morphine Sulfate (Morphine Inj) 2 mg Q3H PRN IV PUSH Pain 6-10; Start 10/26/17 at 05:45 Multivitamins (Theragran) 1 tab DAILY PO Last administered on 10/26/17at 09:51; Start 10/26/17 at 09:00 Ondansetron HCl (Zofran Inj) 4 mg Q6H PRN IVP NAUSEA OR VOMITING; Start at 05:45 Pharmacy Profile Note 0 ml @ 0 mls/hr UNSCH OTHER ; Start 10/26/17 at 05:45 Piperacillin Sod/ Tazobactam Sod 50 ml @ 100 mls/hr Q6H IV Last administered on 10/30/17at 09:39; Start 10/26/17 at 17:00 Ropinirole HCl (Requip) 1 mg Q8HR PO ; Start 10/26/17 at 22:00 Senna/Docusate Sodium (Lucia-Colace) 1 tab BID PO Last administered on at 09:51; Start 10/26/17 at 09:00 Sennosides (Senokot) 17.2 mg Q12H PRN PO Moderate constipation; Start 10/26/17 at 05:45 Sodium Bicarbonate 75 meq/Dextrose 1,075 ml @ 125 mls/hr Q8H36M IV Last administered on 10/26/17at 11:17; Start 10/26/17 at 10:00; Stop 10/26/17 at 16:42 ; Status DC Sodium Chloride 1,000 ml @ 125 mls/hr Q8H IV Last administered on 10/29/17at 13 :54; Start 10/26/17 at 16:45; Stop 10/29/17 at 21:10; Status DC Sodium Chloride (NS Flush) 2 ml BID IV FLUSH Last administered on 10/29/17at 23: 35; Start 10/26/17 at 09:00 Tolterodine Tartrate (Detrol La) 2 mg DAILY PO ; Start 10/26/17 at 09:30 Vancomycin HCl 250 mg/Sodium Chloride 52.5 ml @ 150 mls/hr ONCE ONCE IV Last administered on 10/26/17at 10:00; Start 10/26/17 at 10:00; Stop 10/26/17 at 10:20 ; Status DC Vancomycin HCl 1000 mg/Sodium Chloride 250 ml @ 250 mls/hr ONCE ONCE IV Last administered on 10/26/17at 06:52; Start 10/26/17 at 06:00; Stop 10/26/17 at 06:59 ; Status DC Vancomycin HCl 1250 mg/Sodium Chloride 262.5 ml @ 250 mls/hr ONCE ONCE IV Last administered on 10/27/17at 12:43; Start 10/27/17 at 11:00; Stop 10/27/17 at 12:02; Status DC Vancomycin HCl 1500 mg/Sodium Chloride 515 ml @ 250 mls/hr ONCE ONCE IV Last administered on 10/29/17at 14:40; Start 10/29/17 at 11:00; Stop 10/29/17 at 13:03 ; Status DC A/P Assessment and Plan Patient meets sepsis criteria with fever 102, leukocytosis with white count of 19.6 and source of multi lobar pneumonia, failed outpatient treatment. Acute hypoxic respiratory failure, resolving. - CXR reveals mild increased density of the right medial base, images reviewed by me - evaluated by ST; recommended NPO status. - continue IV antibiotic. - Supportive care - DuoNebs - Continue to monitor respiratory status and maintain supplemental oxygen to keep O2 sats above 92% - consulted palliative care; POA requested comfort care and hospice evaluation. Hypernatremia Rhabdomyolysis - continue IVF . Elevated troponin - initial trop 0.10 - continue to monitor cardiac enzymes AUSTYN on CKD - Suspect due to dehydration, poor oral intake -continue IV fluid - Avoid nephrotoxic agents Anemia, chronic, on iron supplementation at home - no active bleeding - monitor CBC Hypertension - vasotec prn. DM - accucheck - ISS Dementia BLE contractures - Continue patient on home dose of Donezepil 10 mg daily - PT/OT eval/tx Left heel pressure ulcer - consulted wound care - Float heels off the bed/multipolus boots Hypothyroidism - oral meds on hold for now due to dysphagia DVT prophylaxis - Heparin sq hospice following; will continue with supportive care with focus on comfort measures. Discharge Planning continue with conservative treatment with focus on comfort care - awaiting hospice follow-up. plan for dc back to SNF on hospice. d/w the RN and case management. called the POA but wasn't able to reach her. Jennifer Maldonado MD Oct 30, 2017 12:20
[2017-10-30] MEDS: RESP: ALBUTEROL 2.5 MG/IPRATROPIUM 0.5 MG NEB (SCH) NEB ×2 (16:00→20:55)
[2017-10-30] MEDS ORDERED: ENALAPRILAT 1.25 MG/ML VIAL IV PUSH PRN (19:15)
[2017-10-30] MEDS: DONEPEZIL HCL 5 MG TAB PO SCH (21:00)
[2017-10-30] MEDS: ATORVASTATIN 10 MG TAB PO SCH (21:00)
[2017-10-31 00:04] VITALS: BP 158/70; PULSE 88; RESP 20; TEMP 98.7; O2SAT 94
[2017-10-31 05:12] VITALS: BP 147/65; PULSE 79; RESP 20; TEMP 97.3; O2SAT 93
[2017-10-31] MEDS: PIPERACIL-TAZO 3.375 GM PREMIX 50 ML IV SCH ×3 (05:36→17:40)
[2017-10-31] MEDS: DEXT 5%-NACL 0.45% 1000 ML INJ 1,000 ML IV SCH ×2 (05:37→13:42)
[2017-10-31 07:04] LABS: CREATININE 1.31 MG/DL (0.60-1.30)
[2017-10-31 07:06] LABS: RANDOM VANCOMYCIN 13.3 COMMENT
[2017-10-31 08:00] VITALS: BP 146/91; PULSE 77; RESP 22; TEMP 97.5; O2SAT 94
[2017-10-31] MEDS: INSULIN ASPART SUPPLEMENTAL SCALE SQ SCH ×4 (08:00→19:56)
[2017-10-31] MEDS: RESP: ALBUTEROL 2.5 MG/IPRATROPIUM 0.5 MG NEB (SCH) NEB ×4 (08:35→20:28)
[2017-10-31] MEDS: ARIPiprazole 5 MG TAB PO SCH (09:00)
[2017-10-31] MEDS: CYANOCOBALAMIN 1,000 MCG TAB PO SCH (09:00)
[2017-10-31] MEDS: SODIUM CHLORIDE 0.9% FLUSH 10 ML FLUSH IV FLUSH SCH ×2 (09:00→19:54)
[2017-10-31] MEDS: COLLAGENASE OINT 30 GM TUBE TOPICAL SCH (09:00)
[2017-10-31] MEDS: LEVOTHYROXINE SODIUM 75 MCG TAB PO SCH (09:00)
--- NOTE | 2017-10-31 09:18 | HHI.PR ---
Objective Vitals Vital Signs Date Time Temp Pulse Resp B/P (MAP) Pulse Ox O2 Delivery O2 Flow Rate FiO2 10/31/17 08:37 21 10/31/17 08:00 97.5 77 22 146/91 (109) 94 10/31/17 05:12 97.3 79 20 147/65 (92) 93 10/31/17 00:04 98.7 88 20 158/70 (99) 94 10/30/17 21:01 98.6 87 20 153/67 (95) 99 10/30/17 20:56 Nasal Cannula 2.00 10/30/17 16:30 95 Nasal Cannula 2.00 10/30/17 16:30 96.7 84 16 180/77 (111) 93 10/30/17 16:25 Nasal Cannula 2.00 10/30/17 12:00 98.0 76 18 127/82 (97) 95 I/O 10/30/17 10/30/17 10/30/17 10/31/17 10/31/17 10/31/17 07:00 15:00 23:00 07:00 15:00 23:00 Output Total 600 ml 600 ml Balance -600 ml -600 ml Output Urine Total 600 ml 600 ml Result Diagram: 10/27/17 0133 10/31/17 0454 Caridad Hackett DO Oct 31, 2017 09:18
[2017-10-31 12:00] VITALS: BP 155/70; PULSE 83; RESP 20; TEMP 97.9; O2SAT 95
[2017-10-31] MEDS: HEPARIN SODIUM - SQ 10,000 UNITS/ML VIAL SQ SCH ×2 (12:05→19:55)
[2017-10-31] MEDS: ASPIRIN 81 MG CHEW TAB CHEW SCH (12:06)
[2017-10-31] MEDS: LEVOTHYROXINE SODIUM 100 MCG TAB PO SCH ×2 (12:06→12:08)
[2017-10-31] MEDS: LACTOBACILLUS ACIDOPHILUS TAB PO SCH ×2 (12:07→19:53)
[2017-10-31] MEDS: MULTIVITAMIN TAB PO SCH (12:07)
[2017-10-31] MEDS: FERROUS SULFATE 325 MG (65 MG ELEMENTAL IRON) TAB PO SCH ×2 (12:07→17:41)
[2017-10-31] MEDS: busPIRone HCL 5 MG TAB PO SCH ×2 (12:07→19:53)
[2017-10-31] MEDS: DOCUSATE SODIUM 50 MG/SENNA 8.6 MG TAB PO SCH ×2 (12:08→19:54)
[2017-10-31] MEDS: TOLTERODINE TARTRATE 2 MG CAP LA PO SCH (12:08)
[2017-10-31] MEDS ORDERED: VANCOMYCIN INJ 1,500 MG in SODIUM CHLORID 0.9% 500 ML INJ 500 ML IV ONE (13:00)
[2017-10-31 16:00] VITALS: BP 141/81; PULSE 88; RESP 22; TEMP 98.7; O2SAT 93
--- NOTE | 2017-10-31 18:47 | HHI.DS ---
Discharge Summary Admission Date Oct 26, 2017 at 05:17 Discharge Date: Oct 31, 2017 Admitting Diagnosis Pneumonia failed outpatient, dehydration, rhabdo (1) Hypernatremia ICD Code: E87.0 - Hyperosmolality and hypernatremia (2) sepsis, pneumonia (3) dementia, with bedbound and nonverbal status Procedures None. Brief History - From Admission This is a 82-year-old male with past medical history significant for dementia who is basically nonverbal, hypertension, coronary artery disease, anemia, diabetes, hypothyroidism, long-standing tremor and left heel pressure ulcer who presents to [facility] ED with complaints of progressive shortness of breath. As patient is basically nonverbal, all history is obtained from review of the medical record and discussion with the nursing staff. Reportedly, patient is on supplemental oxygen 2 L at the nursing facility where he resides. It is unclear how long he has been on supplemental oxygen. He is currently receiving Doxycycline for bilateral pneumonia which was confirmed via chest x- ray. Reportedly, patient is having fevers at the nursing facility with a maximum temperature of 102. In the ED, chest x-ray was obtained revealing mild increased density at the right medial base. Patient was found to have elevated white count of 19.6. Patient is found to be hypernatremic with a sodium level of 154. Troponin is elevated 0.10. CK elevated at 2020. Lactic acid is 1.8. CBC/BMP: 10/27/17 0133 10/31/17 0454 Significant Findings Laboratory Tests Test 10/29/17 07:15 10/31/17 04:54 Creatinine 1.31 MG/DL (0.60-1.30) Estimat Glomerular Filtration Rate 53 ML/MIN (>89) Imaging Last Impressions Chest X-Ray 10/28/17 0000 Signed Impressions: Service Date/Time: Thursday, October 28, 2017 23:32 - CONCLUSION: Right medial base atelectasis or consolidation. Pulmonary edema is not seen. Davie Kurtz MD PE at Discharge GENERAL: elderly male, in no apparent distress. CARDIOVASCULAR: Regular rate and regular rhythm without murmurs, gallops, or rubs. RESPIRATORY: Clear to auscultation. Breath sounds equal bilaterally. No wheezes , rales, or rhonchi. GASTROINTESTINAL: Abdomen soft, non-tender, nondistended. Normal, active bowel sounds MUSCULOSKELETAL: Extremities without clubbing, cyanosis, or edema. NEURO: awake but non-verbal. Pt update on day of discharge Patient appears to be upset when awake. Non-verbal. Afebrile. He was found hospice appropriate and discharged to hospice med facility. Hospital Course This is a 82-year-old male with past medical history significant for dementia who is basically nonverbal, hypertension, coronary artery disease, anemia, diabetes, hypothyroidism, long-standing tremor and left heel pressure ulcer who presents to [facility] ED with complaints of progressive shortness of breath. Patient met sepsis criteria due to fever, WBC elevation, multilobar pneumonia. He failed outpatient treatments. Due to concerns over aspiration pneumonia, he was evaluated by speech therapy who recommended NPO. He was also evaluated by palliative care and hospice after discussing with family. [facility] Patient was subsequently discharged with hospice. Pt Condition on Discharge: Fair Discharge Disposition: Hospice/Med Facility Discharge Time: <= 30 minutes Discharge Instructions DIET: Follow Instructions for: Nothing By Mouth Activities you can perform: Regular-No Restrictions Caridad Hackett DO Oct 31, 2017 18:47
[2017-10-31] MEDS: ATORVASTATIN 10 MG TAB PO SCH (19:53)
[2017-10-31] MEDS: DONEPEZIL HCL 5 MG TAB PO SCH (19:53)
[2017-10-31 20:00] VITALS: BP 125/67; PULSE 83; RESP 20; TEMP 98.1; O2SAT 97
== END 2017-10-31 21:10 | disposition hospice, inpatient (51) | DRG 871 ==
LOC: NEPE 01:34 → NEDA 05:17 → NEDH 11:14 → NEPHCDU 14:59 → N07B 10-30 15:48
PROVIDERS: ADMIT Hospitalist; ATTEND Hospitalist
DX: A41.9 Sepsis, unspecified organism (principal); J18.1 Lobar pneumonia, unspecified organism; J96.01 Acute respiratory failure with hypoxia; N17.9 Acute kidney failure, unspecified; G93.41 Metabolic encephalopathy; E87.0 Hyperosmolality and hypernatremia; I95.9 Hypotension, unspecified; M62.82 Rhabdomyolysis; F03.90 Unspecified dementia, unspecified severity, without behavioral disturbance, psychotic disturbance, mood disturbance, and anxiety; R13.10 Dysphagia, unspecified; L89.620 Pressure ulcer of left heel, unstageable; E11.22 Type 2 diabetes mellitus with diabetic chronic kidney disease; Z79.4 Long term (current) use of insulin; Z79.84 Long term (current) use of oral hypoglycemic drugs; D64.9 Anemia, unspecified; I12.9 Hypertensive chronic kidney disease with stage 1 through stage 4 chronic kidney disease, or unspecified chronic kidney disease; N18.9 Chronic kidney disease, unspecified; E03.9 Hypothyroidism, unspecified; E86.0 Dehydration; I25.10 Atherosclerotic heart disease of native coronary artery without angina pectoris; Z51.5 Encounter for palliative care; Z74.01 Bed confinement status; Z66 Do not resuscitate; R74.8 Abnormal levels of other serum enzymes; F79 Unspecified intellectual disabilities; Z87.820 Personal history of traumatic brain injury
CPT/HCPCS: 71045; 80048; 80053; 80202; 81001; 82550; 82552; 82565; 82948; 83605; 83690; 83735; 83880; 84484; 85025; 85610; 85730; 86140; 86403; 87040; 87077; 87186; 87205; 87804; 93005; 94640; 94664; 96365; 96367; 96375; G8988-GP; G8989-GP; J0456; J0692; J1644; J1815; J2543; J2930; J3370; J7030; J7040; J7050; J7070